=== PATIENT | male | born 1965 | race Two or more races ===

== ENCOUNTER 2017-05-02 11:22 | Inpatient (IN) | payer MEDICARE ==
[~2017-05-02] VITALS: Ht 180.3 cm; Wt 83.9 kg
[2017-05-02] MEDS ORDERED: Morphine Sulfate 4mg/ml Inj IVP ONE (11:30)
[2017-05-02] MEDS ORDERED: Ketorolac 30mg Inj IV ONE (11:30)
[2017-05-02 11:52] LABS: BASOPHILS % (AUTO) 1.6 % (0.0-2.0); EOSINOPHILS % (AUTO) 4.6 % (0.0-3.0); HEMOGLOBIN 15.1 G/DL (14.2-18.0); LYMPHOCYTES % (AUTO) 14.9 % (20.0-45.0); MEAN CORPUSCULAR VOLUME 90 FL (80-99); NEUTROPHILS % (AUTO) 71.9 % (45.0-75.0); PLATELET COUNT 331 K/UL (150-450); RED CELL DISTRIBUTION WIDTH 12.7 % (11.6-14.8); WHITE BLOOD COUNT 7.3 K/UL (4.8-10.8)
[2017-05-02 12:00] VITALS: BP 147/98
[2017-05-02 12:14] LABS: ANION GAP 7 mmol/L (5-15); BLOOD UREA NITROGEN 10 mg/dL (7-18); CALCIUM 9.2 MG/DL (8.5-10.1); CARBON DIOXIDE 31 MMOL/L (21-32); CHLORIDE 102 MMOL/L (98-107); POTASSIUM 3.5 MMOL/L (3.5-5.1); SODIUM 140 MMOL/L (136-145)
[2017-05-02 12:18] LABS: ALANINE AMINOTRANSFERASE 13 U/L (12-78); ALBUMIN 3.7 G/DL (3.4-5.0); ALKALINE PHOSPHATASE 106 U/L (46-116); ASPARTATE AMINO TRANSFERASE 16 U/L (15-37); BILIRUBIN,TOTAL 0.4 MG/DL (0.2-1.0)
[2017-05-02] MEDS ORDERED: HYDROmorphone 1mg/ml Carpuject IVP ONE (13:00)
[2017-05-02 13:11] LABS: APPEARANCE,URINE SLIGHTLY CLOUDY; BILIRUBIN, URINE NEGATIVE (NEGATIVE); COLOR,URINE PALE YELLOW; GLUCOSE, URINE (UA) NEGATIVE (NEGATIVE); KETONES,URINE 2+ (NEGATIVE); LEUKOCYTE ESTERASE ,URINE NEGATIVE (NEGATIVE); NITRITE,URINE NEGATIVE (NEGATIVE); PH,URINE 9 (4.5-8.0); PROTEIN,URINE NEGATIVE (NEGATIVE); UROBILINOGEN,URINE NORMAL MG/DL (0.0-1.0)
[2017-05-02] MEDS ORDERED: QUETIAPINE FUMA25 MG ORAL (13:20)
[2017-05-02] MEDS ORDERED: PRAMIPEXOLE D0.25 MG ORAL (13:20)
[2017-05-02] MEDS ORDERED: MODAFINIL100 MG ORAL (13:20)
[2017-05-02] MEDS ORDERED: LUNESTA3 MG ORAL (13:20)
[2017-05-02] MEDS ORDERED: ATIVAN1 MG ORAL (13:20)
[2017-05-02] MEDS ORDERED: TRILEPTAL600 MG PO (13:20)
[2017-05-02] MEDS ORDERED: RESTORIL15 MG ORAL (13:20)
[2017-05-02] MEDS ORDERED: KLONOPIN0.5 MG ORAL (13:20)
[2017-05-02 13:46] VITALS: BP 126/84
--- NOTE | 2017-05-02 14:06 | Diagnostic Imaging Report ---
Indication: Abdominal pain Technique: Supine view of the abdomen Comparison: none Findings: Bowel gas pattern is unremarkable. No unusual masses or calcifications. Impression: No acute process
--- NOTE | 2017-05-02 14:13 | Diagnostic Imaging Report ---
Indication: Left flank pain Technique: Grayscale and duplex images of the kidneys, retroperitoneum, and bladder were obtained. Comparison: none Findings: Right kidney measures 11.8 cm in length. Left kidney measures 12.5 cm in length. Both kidneys demonstrate normal echogenicity. No hydronephrosis. Right kidney demonstrates a 3 cm diameter hypoechoic area in the interpolar region and there is suggestion of a small cortical scar in the interpolar region. No focal abnormality on the left. Normal inferior vena cava. Prevoid bladder volume 380 mL. Postvoid bladder volume 171 mL. Prostate volume 30 mL. Impression: 3 cm diameter hypoechoic area in the interpolar region of the right kidney. Could represent a solid renal mass. Further evaluation with contrast CT recommended Negative for hydronephrosis Large postvoid residual bladder volume, 171 mL. Findings discussed by phone with Dr. Bateman at the time of interpretation
[2017-05-02] MEDS ORDERED: fentaNYL 100 mcg/2 mL IV ONE (14:30)
--- NOTE | 2017-05-02 14:32 | Emergency Room Report ---
History of Present Illness General Chief Complaint: Abdominal Pain Source: Patient, EMS Present Illness HPI Patient presents with left flank pain. He had a CT done at another hospital they said that he had a renal stone. The pain has persisted. He denies any hematuria or fever. He's had nausea without any vomiting. His moved his bowels without any trouble. Pain is severe, burning L flank radiating anteriorly, constant. States no medicine taken. No fevers, cough, sore throat, headache. + anxiety. On meds for psych. No recent seizures. Allergies: Coded Allergies: No Known Allergies (Unverified , 05/02/17) Patient History Past Medical History: see triage record, HTN, psych hx, other - traumatic brain injury Social History: Denies: smoking Social History Narrative assisted living Reviewed Nursing Documentation: PMH: Agreed, PSxH: Agreed Nursing Documentation-PMH Hx Hypertension: Yes Review of Systems All Other Systems: negative except mentioned in HPI Physical Exam Vital Signs Date Time Temp Pulse Resp B/P (MAP) Pulse Ox O2 Delivery O2 Flow Rate FiO2 05/02/17 11:13 98.2 82 20 112/76 99 Room Air Sp02 EP Interpretation: reviewed, normal General Appearance: well appearing, alert, GCS 15 - though can't say where CT was done, mild distress Head: normocephalic Eyes: bilateral eye normal inspection, bilateral eye PERRL ENT: moist mucus membranes Neck: supple Respiratory: lungs clear, normal breath sounds Cardiovascular #1: regular rate, rhythm Cardiovascular #2: 2+ radial (R) Gastrointestinal: normal inspection, normal bowel sounds, no mass, non- distended, no guarding, no rebound, tenderness Genitourinary: no CVA tenderness Musculoskeletal: back normal, gait/station normal, normal range of motion Neurologic: alert, motor strength/tone normal, DTRs symmetric, sensory intact, oriented - X2 Psychiatric: anxious Skin: normal inspection, warm/dry Medical Decision Making Diagnostic Impression: Primary Impression: Intractable left flank pain ER Course Patient with severe L flank pain with h/o recent CT with renal stone. DDx; stone, pyelonephritis, diverticulitis, uti amongst others. Although he is calm , he complains of severe pain. Evaluation with labs and ultrasound (as h/o recent CT). Will treat with IV hydration and analgesia. Will try to track down CT. Patient still with severe pain. Dilaudid is given.. Labs with normal WBC, H/H, UA , CMP. U/S with minimal hydro, no stone identified. R abnormal process (not where pain is). The patient still has significant pain - fentanyl was given. Some improvement but still with severe pain. Patient is admitted to Dr. Dakotah Lynch. Laboratory Tests Test 05/02/17 11:38 05/02/17 12:51 05/02/17 23:00 White Blood Count 7.3 K/UL (4.8-10.8) Red Blood Count 5.20 M/UL (4.70-6.10) Hemoglobin 15.1 G/DL (14.2-18.0) Hematocrit 47.0 % (42.0-52.0) Mean Corpuscular Volume 90 FL (80-99) Mean Corpuscular Hemoglobin 29.1 PG (27.0-31.0) Mean Corpuscular Hemoglobin Concent 32.2 G/DL (32.0-36.0) Red Cell Distribution Width 12.7 % (11.6-14.8) Platelet Count 331 K/UL (150-450) Mean Platelet Volume 6.5 FL (6.5-10.1) Neutrophils (%) (Auto) 71.9 % (45.0-75.0) Lymphocytes (%) (Auto) 14.9 % (20.0-45.0) L Monocytes (%) (Auto) 7.0 % (1.0-10.0) Eosinophils (%) (Auto) 4.6 % (0.0-3.0) H Basophils (%) (Auto) 1.6 % (0.0-2.0) Prothrombin Time 10.1 SEC (9.30-11.50) Prothrombin Time INR 1.0 (0.9-1.1) PTT 29 SEC (23-33) Sodium Level 140 MMOL/L (136-145) Potassium Level 3.5 MMOL/L (3.5-5.1) Chloride Level 102 MMOL/L (98-107) Carbon Dioxide Level 31 MMOL/L (21-32) Anion Gap 7 mmol/L (5-15) Blood Urea Nitrogen 10 mg/dL (7-18) Creatinine 1.0 MG/DL (0.55-1.30) Estimate Glomerular Filtration Rate > 60 mL/min (>60) Glucose Level 95 MG/DL (74-106) Calcium Level 9.2 MG/DL (8.5-10.1) Total Bilirubin 0.4 MG/DL (0.2-1.0) Aspartate Amino Transferase (AST) 16 U/L (15-37) Alanine Aminotransferase (ALT) 13 U/L (12-78) Alkaline Phosphatase 106 U/L (46-116) Total Protein 7.5 G/DL (6.4-8.2) Albumin 3.7 G/DL (3.4-5.0) Globulin 3.8 g/dL Albumin/Globulin Ratio 1.0 (1.0-2.7) Lipase 149 U/L (73-393) Urine Color Pale yellow Pending Urine Appearance Slightly cloudy Pending Urine pH 9 (4.5-8.0) Pending Urine Specific [place] 1.015 (1.005-1.035) Pending Urine Protein Negative (NEGATIVE) Pending Urine Glucose (UA) Negative (NEGATIVE) Pending Urine Ketones 2+ (NEGATIVE) H Pending Urine Occult Blood Negative (NEGATIVE) Pending Urine Nitrite Negative (NEGATIVE) Pending Urine Bilirubin Negative (NEGATIVE) Pending Urine Urobilinogen Normal MG/DL (0.0-1.0) Pending Urine Leukocyte Esterase Negative (NEGATIVE) Pending Urine RBC Pending Urine WBC Pending Urine Squamous Epithelial Cells Pending Urine Bacteria Pending Urine Opiates Screen Pending Urine Barbiturates Screen Pending Phencyclidine (PCP) Screen Pending Urine Amphetamines Screen Pending Urine Benzodiazepines Screen Pending Urine Cocaine Screen Pending Urine Marijuana (THC) Screen Pending Other X-Ray Diagnostic Results Other X-Ray Diagnostic Results : X-Ray ordered: abd # of Views/Limited Vs Complete: 1 View Indication: Pain EP Interpretation: Yes Interpretation: nonspecific bowel gas, no sbo, other - no calcifications Impression: Other Electronically Signed by: Oswaldo Bateman MD CT/MRI/US Diagnostic Results CT/MRI/US Diagnostic Results : Imaging Test Ordered: renal u/s Impression Findings: Right kidney measures 11.8 cm in length. Left kidney measures 12.5 cm in length. Both kidneys demonstrate normal echogenicity. No hydronephrosis. Right kidney demonstrates a 3 cm diameter hypoechoic area in the interpolar region and there is suggestion of a small cortical scar in the interpolar region. No focal abnormality on the left. Normal inferior vena cava. Prevoid bladder volume 380 mL. Postvoid bladder volume 171 mL. Prostate volume 30 mL. Impression: 3 cm diameter hypoechoic area in the interpolar region of the right kidney. Could represent a solid renal mass. Further evaluation with contrast CT recommended Negative for hydronephrosis Large postvoid residual bladder volume, 171 mL. Last Vital Signs Date Time Temp Pulse Resp B/P (MAP) Pulse Ox O2 Delivery O2 Flow Rate FiO2 05/02/17 20:22 80 139/89 05/02/17 20:00 97.7 22 98 05/02/17 14:30 Room Air Status: improved Disposition: HOME, SELF-CARE Condition: Improved Referrals: DAKOTAH LYNCH (PCP) Oswaldo Bateman M.D. May 02, 2017 14:32
--- NOTE | 2017-05-02 15:42 | Consultation ---
History of Present Illness General Date patient seen: May 02, 2017 Chief Complaint: Abdominal Pain Present Illness HPI 51 yo male with hx of opioid dependence and anxiety d/o. the pt received large amount of pain meds in ER. The pt is still c/o severe abdominal pain and appears agitated. the pt is not remaining in his room and constantly coming out of his room and asking for pain and is disruptive. the pt's abdomen is non- tender. Allergies: Coded Allergies: No Known Allergies (Unverified , 05/02/17) Medication History Scheduled Clonazepam* (Klonopin*), 0.5 MG ORAL Q6H, (Reported) Lorazepam* (Ativan*), 1 MG ORAL Q6HR, (Reported) Modafinil* (Provigil), 200 MG ORAL DAILY, (Reported) Oxcarbazepine* (Trileptal*), 600 MG PO BID, (Reported) Pramipexole* (Mirapex*), 0.125 MG ORAL THREE TIMES A DAY, (Reported) Quetiapine Fumarate* (Seroquel*), 300 MG ORAL DAILY, (Reported) Scheduled PRN Eszopiclone (Lunesta), 3 MG ORAL BEDTIME PRN for Insomnia, (Reported) Temazepam* (Restoril*), 15 MG ORAL BEDTIME PRN for Insomnia, (Reported) Patient History Limited by: medical condition History Provided By: Patient, Medical Record, PMD Healthcare decision maker N Resuscitation status Advanced Directive on File Past Medical/Surgical History Past Medical/Surgical History: (1) Kidney stone Review of Systems Psychiatric: Reports: prior hx, anxiety, depressed feelings Physical Exam General Appearance: no apparent distress, alert, agitated Neurologic: alert, oriented x 3, responsive, depressed affect Last 24 Hour Vital Signs Date Time Temp Pulse Resp B/P (MAP) Pulse Ox O2 Delivery O2 Flow Rate FiO2 05/02/17 13:46 98.0 89 19 126/84 98 Room Air 05/02/17 12:00 98.6 97 20 147/98 99 Room Air 05/02/17 11:13 98.2 82 20 112/76 99 Room Air Laboratory Tests Test 05/02/17 11:38 05/02/17 12:51 White Blood Count 7.3 K/UL (4.8-10.8) Red Blood Count 5.20 M/UL (4.70-6.10) Hemoglobin 15.1 G/DL (14.2-18.0) Hematocrit 47.0 % (42.0-52.0) Mean Corpuscular Volume 90 FL (80-99) Mean Corpuscular Hemoglobin 29.1 PG (27.0-31.0) Mean Corpuscular Hemoglobin Concent 32.2 G/DL (32.0-36.0) Red Cell Distribution Width 12.7 % (11.6-14.8) Platelet Count 331 K/UL (150-450) Mean Platelet Volume 6.5 FL (6.5-10.1) Neutrophils (%) (Auto) 71.9 % (45.0-75.0) Lymphocytes (%) (Auto) 14.9 % (20.0-45.0) L Monocytes (%) (Auto) 7.0 % (1.0-10.0) Eosinophils (%) (Auto) 4.6 % (0.0-3.0) H Basophils (%) (Auto) 1.6 % (0.0-2.0) Prothrombin Time 10.1 SEC (9.30-11.50) Prothromb Time International Ratio 1.0 (0.9-1.1) Activated Partial Thromboplast Time 29 SEC (23-33) Sodium Level 140 MMOL/L (136-145) Potassium Level 3.5 MMOL/L (3.5-5.1) Chloride Level 102 MMOL/L (98-107) Carbon Dioxide Level 31 MMOL/L (21-32) Anion Gap 7 mmol/L (5-15) Blood Urea Nitrogen 10 mg/dL (7-18) Creatinine 1.0 MG/DL (0.55-1.30) Estimat Glomerular Filtration Rate > 60 mL/min (>60) Glucose Level 95 MG/DL (74-106) Calcium Level 9.2 MG/DL (8.5-10.1) Total Bilirubin 0.4 MG/DL (0.2-1.0) Aspartate Amino Transf (AST/SGOT) 16 U/L (15-37) Alanine Aminotransferase (ALT/SGPT) 13 U/L (12-78) Alkaline Phosphatase 106 U/L (46-116) Total Protein 7.5 G/DL (6.4-8.2) Albumin 3.7 G/DL (3.4-5.0) Globulin 3.8 g/dL Albumin/Globulin Ratio 1.0 (1.0-2.7) Lipase 149 U/L (73-393) Urine Color Pale yellow Urine Appearance Slightly cloudy Urine pH 9 (4.5-8.0) Urine Specific [place] 1.015 (1.005-1.035) Urine Protein Negative (NEGATIVE) Urine Glucose (UA) Negative (NEGATIVE) Urine Ketones 2+ (NEGATIVE) H Urine Occult Blood Negative (NEGATIVE) Urine Nitrite Negative (NEGATIVE) Urine Bilirubin Negative (NEGATIVE) Urine Urobilinogen Normal MG/DL (0.0-1.0) Urine Leukocyte Esterase Negative (NEGATIVE) Height (Feet): 5 Height (Inches): 11.00 Weight (Pounds): 185 Medications Current Medications Medications (Trade) Dose Ordered Sig/Qian Route PRN Reason Start Time Stop Time Status Last Admin Dose Admin Lorazepam (Ativan) 1 mg Q6H PRN ORAL For Anxiety 05/02/17 15:15 05/09/17 15:14 Oxcarbazepine (Trileptal) 600 mg EVERY 12 HOURS ORAL 05/02/17 21:00 06/01/17 20:59 Quetiapine Fumarate (SEROquel) 300 mg BEDTIME ORAL 05/02/17 21:00 06/01/17 20:59 Assessment/Plan Status: stable, progressing Assessment/Plan opioid/ pain medication dependence -seroquel 300mg qhs -rec to avoid prescribing pain meds. Lesley Navarro M.D. May 02, 2017 15:42
[2017-05-02] MEDS ORDERED: Morphine Sulfate 2mg/ml Inj IVP PRN (15:45)
[2017-05-02] MEDS ORDERED: Mylanta II UD 30ml ORAL PRN (15:45)
[2017-05-02] MEDS ORDERED: Miralax 17gm pkt ORAL PRN (15:45)
[2017-05-02] MEDS ORDERED: Morphine Sulfate 4mg/ml Inj IV PRN (15:45)
[2017-05-02] MEDS ORDERED: Nitroglycerin Subl 0.4mg tab SL PRN (15:45)
[2017-05-02 15:59] VITALS: BP 142/81
[2017-05-02] MEDS: Morphine Sulfate 4mg/ml Inj IV PRN (16:41)
[2017-05-02] MEDS ORDERED: cefTRIAXone 1 GM in D5W 55 ML IVPB SCH (17:00)
--- NOTE | 2017-05-02 17:24 | Pulmonology Progress Note ---
Assessment/Plan Problems: (1) Kidney stone (2) Abdominal pain (3) HTN (hypertension) (4) Dizziness Assessment/Plan IV fluids check cultures symptomatic treatment dvt prophylaxis f/u GI recommendations. urology evaluation Subjective ROS Limited/Unobtainable: No Interval Events: still c/o pain Allergies: Coded Allergies: No Known Allergies (Unverified , 05/02/17) Objective Last 24 Hour Vital Signs Date Time Temp Pulse Resp B/P (MAP) Pulse Ox O2 Delivery O2 Flow Rate FiO2 05/02/17 15:59 97.0 85 21 142/81 97 05/02/17 14:30 89 17 125/74 99 Room Air 05/02/17 13:46 98.0 89 19 126/84 98 Room Air 05/02/17 12:00 98.6 97 20 147/98 99 Room Air 05/02/17 11:13 98.2 82 20 112/76 99 Room Air HEENT: normocephalic, atraumatic Respiratory/Chest: chest wall non-tender, lungs clear Cardiovascular: normal peripheral pulses, normal rate Abdomen: normal bowel sounds, soft, non tender Extremities: no cyanosis Skin: no rash 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 Laboratory Tests 05/02/17 11:38: White Blood Count 7.3, Red Blood Count 5.20, Hemoglobin 15.1, Hematocrit 47.0, Mean Corpuscular Volume 90, Mean Corpuscular Hemoglobin 29.1, Mean Corpuscular Hemoglobin Concent 32.2, Red Cell Distribution Width 12.7, Platelet Count 331, Mean Platelet Volume 6.5, Neutrophils (%) (Auto) 71.9, Lymphocytes (%) (Auto) 14.9L, Monocytes (%) (Auto) 7.0, Eosinophils (%) (Auto) 4.6H, Basophils (%) ( Auto) 1.6, Prothrombin Time 10.1, Prothromb Time International Ratio 1.0, Activated Partial Thromboplast Time 29, Sodium Level 140, Potassium Level 3.5, Chloride Level 102, Carbon Dioxide Level 31, Anion Gap 7, Blood Urea Nitrogen 10 , Creatinine 1.0, Estimat Glomerular Filtration Rate > 60, Glucose Level 95, Calcium Level 9.2, Total Bilirubin 0.4, Aspartate Amino Transf (AST/SGOT) 16, Alanine Aminotransferase (ALT/SGPT) 13, Alkaline Phosphatase 106, Total Protein 7.5, Albumin 3.7, Globulin 3.8, Albumin/Globulin Ratio 1.0, Lipase 149 05/02/17 12:51: Urine Color Pale yellow, Urine Appearance Slightly cloudy, Urine pH 9, Urine Specific [place] 1.015, Urine Protein Negative, Urine Glucose (UA) Negative, Urine Ketones 2+H, Urine Occult Blood Negative, Urine Nitrite Negative, Urine Bilirubin Negative, Urine Urobilinogen Normal, Urine Leukocyte Esterase Negative Current Medications Medications (Trade) Dose Ordered Sig/Qian Route PRN Reason Start Time Stop Time Status Last Admin Dose Admin Acetaminophen (Tylenol) 650 mg Q4H PRN ORAL fever (temp>100.5F) 05/02/17 15:45 06/01/17 15:44 Al Hydroxide/Mg Hydroxide (Mylanta II) 30 ml Q6H PRN ORAL dyspepsia 05/02/17 15:45 06/01/17 15:44 Ceftriaxone Sodium 1 gm/ Sodium Chloride 55 ml @ 110 mls/hr Q24H IVPB 05/02/17 17:00 05/09/17 16:59 Dextrose (Dextrose 50%) STAT PRN IV Hypoglycemia 05/02/17 15:45 06/01/17 15:44 Dextrose/Sodium Chloride 1,000 ml @ 75 mls/hr [id number] IV 05/02/17 16:30 06/01/17 16:29 Diphenhydramine HCl (Benadryl) 25 mg Q6H PRN ORAL Itching/Pruritis 05/02/17 15:45 06/01/17 15:44 Famotidine (Pepcid I.v.) 20 mg Q12HR IVP 05/02/17 21:00 06/01/17 20:59 Heparin Sodium (Porcine) (Heparin 5000 units/ml) 5,000 units EVERY 12 HOURS SUBQ 05/02/17 21:00 06/01/17 20:59 Lorazepam (Ativan) 1 mg Q6H PRN ORAL For Anxiety 05/02/17 15:15 05/09/17 15:14 Morphine Sulfate (Morphine Sulfate) 2 mg Q4H PRN IVP Moderate Pain (Pain Scale 4-6) 05/02/17 15:45 05/09/17 15:44 Morphine Sulfate (Morphine Sulfate) 4 mg Q4H PRN IV Severe Pain (Pain Scale 7-10) 05/02/17 16:15 05/09/17 16:14 05/02/17 16:41 Nitroglycerin (Ntg) 0.4 mg Q5M X 3 DOSES PRN SL Prn Chest Pain 05/02/17 15:45 06/01/17 15:44 Ondansetron HCl (Zofran) 4 mg Q6H PRN IVP Nausea & Vomiting 05/02/17 15:45 06/01/17 15:44 Oxcarbazepine (Trileptal) 600 mg EVERY 12 HOURS ORAL 05/02/17 21:00 06/01/17 20:59 Polyethylene Glycol (Miralax) 17 gm HSPRN PRN ORAL Constipation 05/02/17 15:45 06/01/17 15:44 Quetiapine Fumarate (SEROquel) 300 mg BEDTIME ORAL 05/02/17 21:00 06/01/17 20:59 Temazepam (Restoril) 15 mg HSPRN PRN ORAL Insomnia 05/02/17 15:45 05/09/17 15:44 KELSIE EGAN May 02, 2017 17:24
--- NOTE | 2017-05-02 17:48 | GI Initial Consult Note ---
History of Present Illness General Date patient seen: May 02, 2017 Time patient seen: 17:47 Reason for Hospitalization: Abdominal Pain Referring physician: KELSIE BULLARD Reason for Consultation: ABDOMINAL PAIN Present Illness HPI Patient presents with left flank pain. He had a CT done at another hospital he said that he had a renal stone. The pain has persisted. He denies any hematuria or fever. He's had nausea without any vomiting. His moved his bowels trouble. GI consulted for abdominal pain. HPI noted above. Pt seen on floor, awake A& Ox4 very anxious ambulating around the unit complaining of lower abdominal pain. Soft, non tender to touch. States he hasn't been able to eat for 3-4 days. C/o of constipation, no passing of flatus. No history of endoscopy/ colonoscopy. Denies any tobacco/alcohol/drug use. Home Meds Reported Medications Temazepam* (RESTORIL*) 15 Mg Capsule, 15 MG ORAL BEDTIME Y for Insomnia, CAP 05/02/17 Lorazepam* (ATIVAN*) 1 Mg Tablet, 1 MG ORAL Q6HR, TAB 05/02/17 Clonazepam* (KLONOPIN*) 0.5 Mg Tablet, 0.5 MG ORAL Q6H, #15 TAB 0 Refills 05/02/17 Eszopiclone (LUNESTA) 3 Mg Tablet, 3 MG ORAL BEDTIME Y for Insomnia, TAB 0 Refills 05/02/17 Quetiapine Fumarate* (SEROQUEL*) 25 Mg Tablet, 300 MG ORAL DAILY, TAB 05/02/17 Modafinil* (PROVIGIL) 100 Mg Tablet, 200 MG ORAL DAILY, TAB 0 Refills 05/02/17 Pramipexole* (MIRAPEX*) 0.25 Mg Tablet, 0.125 MG ORAL THREE TIMES A DAY, TAB 05/02/17 Oxcarbazepine* (TRILEPTAL*) 600 Mg Tablet, 600 MG PO BID, TAB 05/02/17 Med list reviewed/reconciled: Yes Allergies: Coded Allergies: No Known Allergies (Unverified , 05/02/17) Patient History Limited by: medical condition History Provided By: Patient, Medical Record PMH Narrative Hx Hypertension: Yes Review of Systems All Other Systems: negative except mentioned in HPI Physical Exam Vital Signs Date Time Temp Pulse Resp B/P (MAP) Pulse Ox O2 Delivery O2 Flow Rate FiO2 05/02/17 11:13 98.2 82 20 112/76 99 Room Air Sp02 EP Interpretation: reviewed, normal Labs Laboratory Tests Test 05/02/17 11:38 05/02/17 12:51 White Blood Count 7.3 K/UL (4.8-10.8) Red Blood Count 5.20 M/UL (4.70-6.10) Hemoglobin 15.1 G/DL (14.2-18.0) Hematocrit 47.0 % (42.0-52.0) Mean Corpuscular Volume 90 FL (80-99) Mean Corpuscular Hemoglobin 29.1 PG (27.0-31.0) Mean Corpuscular Hemoglobin Concent 32.2 G/DL (32.0-36.0) Red Cell Distribution Width 12.7 % (11.6-14.8) Platelet Count 331 K/UL (150-450) Mean Platelet Volume 6.5 FL (6.5-10.1) Neutrophils (%) (Auto) 71.9 % (45.0-75.0) Lymphocytes (%) (Auto) 14.9 % (20.0-45.0) L Monocytes (%) (Auto) 7.0 % (1.0-10.0) Eosinophils (%) (Auto) 4.6 % (0.0-3.0) H Basophils (%) (Auto) 1.6 % (0.0-2.0) Prothrombin Time 10.1 SEC (9.30-11.50) Prothromb Time International Ratio 1.0 (0.9-1.1) Activated Partial Thromboplast Time 29 SEC (23-33) Sodium Level 140 MMOL/L (136-145) Potassium Level 3.5 MMOL/L (3.5-5.1) Chloride Level 102 MMOL/L (98-107) Carbon Dioxide Level 31 MMOL/L (21-32) Anion Gap 7 mmol/L (5-15) Blood Urea Nitrogen 10 mg/dL (7-18) Creatinine 1.0 MG/DL (0.55-1.30) Estimat Glomerular Filtration Rate > 60 mL/min (>60) Glucose Level 95 MG/DL (74-106) Calcium Level 9.2 MG/DL (8.5-10.1) Total Bilirubin 0.4 MG/DL (0.2-1.0) Aspartate Amino Transf (AST/SGOT) 16 U/L (15-37) Alanine Aminotransferase (ALT/SGPT) 13 U/L (12-78) Alkaline Phosphatase 106 U/L (46-116) Total Protein 7.5 G/DL (6.4-8.2) Albumin 3.7 G/DL (3.4-5.0) Globulin 3.8 g/dL Albumin/Globulin Ratio 1.0 (1.0-2.7) Lipase 149 U/L (73-393) Urine Color Pale yellow Urine Appearance Slightly cloudy Urine pH 9 (4.5-8.0) Urine Specific [place] 1.015 (1.005-1.035) Urine Protein Negative (NEGATIVE) Urine Glucose (UA) Negative (NEGATIVE) Urine Ketones 2+ (NEGATIVE) H Urine Occult Blood Negative (NEGATIVE) Urine Nitrite Negative (NEGATIVE) Urine Bilirubin Negative (NEGATIVE) Urine Urobilinogen Normal MG/DL (0.0-1.0) Urine Leukocyte Esterase Negative (NEGATIVE) General Appearance: well appearing, no apparent distress, alert Head: normocephalic EENT: PERRL/EOMI, normal ENT inspection Neck: supple Respiratory: normal breath sounds, no respiratory distress Cardiovascular: normal rate Gastrointestinal: normal inspection, non tender, soft, normal bowel sounds, non -distended Rectal: deferred Genitourinary: deferred Musculoskeletal: normal inspection, back normal Neurologic: normal inspection, alert, oriented x3, responsive Psychiatric: normal inspection, judgement/insight normal, memory normal Skin: normal inspection, normal color, no rash, warm/dry, palpation normal, well hydrated Lymphatic: normal inspection, no adenopathy Current Medications Current Medications Medications (Trade) Dose Ordered Sig/Qian Route PRN Reason Start Time Stop Time Status Last Admin Dose Admin Acetaminophen (Tylenol) 650 mg Q4H PRN ORAL fever (temp>100.5F) 05/02/17 15:45 06/01/17 15:44 Al Hydroxide/Mg Hydroxide (Mylanta II) 30 ml Q6H PRN ORAL dyspepsia 05/02/17 15:45 06/01/17 15:44 Ceftriaxone Sodium 1 gm/ Sodium Chloride 55 ml @ 110 mls/hr Q24H IVPB 05/02/17 17:00 05/09/17 16:59 Dextrose (Dextrose 50%) STAT PRN IV Hypoglycemia 05/02/17 15:45 06/01/17 15:44 Dextrose/Sodium Chloride 1,000 ml @ 75 mls/hr [id number] IV 05/02/17 16:30 06/01/17 16:29 Diphenhydramine HCl (Benadryl) 25 mg Q6H PRN ORAL Itching/Pruritis 05/02/17 15:45 06/01/17 15:44 Famotidine (Pepcid I.v.) 20 mg Q12HR IVP 05/02/17 21:00 06/01/17 20:59 Heparin Sodium (Porcine) (Heparin 5000 units/ml) 5,000 units EVERY 12 HOURS SUBQ 05/02/17 21:00 06/01/17 20:59 Lorazepam (Ativan) 1 mg Q6H PRN ORAL For Anxiety 05/02/17 15:15 05/09/17 15:14 Morphine Sulfate (Morphine Sulfate) 2 mg Q4H PRN IVP Moderate Pain (Pain Scale 4-6) 05/02/17 15:45 05/09/17 15:44 Morphine Sulfate (Morphine Sulfate) 4 mg Q4H PRN IV Severe Pain (Pain Scale 7-10) 05/02/17 16:15 05/09/17 16:14 05/02/17 16:41 Nitroglycerin (Ntg) 0.4 mg Q5M X 3 DOSES PRN SL Prn Chest Pain 05/02/17 15:45 06/01/17 15:44 Ondansetron HCl (Zofran) 4 mg Q6H PRN IVP Nausea & Vomiting 05/02/17 15:45 06/01/17 15:44 05/02/17 17:34 Oxcarbazepine (Trileptal) 600 mg EVERY 12 HOURS ORAL 05/02/17 21:00 06/01/17 20:59 Polyethylene Glycol (Miralax) 17 gm HSPRN PRN ORAL Constipation 05/02/17 15:45 06/01/17 15:44 Quetiapine Fumarate (SEROquel) 300 mg BEDTIME ORAL 05/02/17 21:00 06/01/17 20:59 Temazepam (Restoril) 15 mg HSPRN PRN ORAL Insomnia 05/02/17 15:45 05/09/17 15:44 GI: Plan Problems: (1) Abdominal pain (2) Anxiety (3) Nausea (4) Kidney stone Plan KUB reviewed >> negative symptomatic treatment pain mgmt zofran prn ativan prn will advance diet bowel regime >> colace fu labs, utox suggest psych / pain consult Discussed with Dr. Skinner. Thank you for this patient referral, we will follow. Hannah Perales N.P. May 02, 2017 17:48
[2017-05-02] MEDS: LORazepam 1mg tab ORAL PRN (18:26)
--- NOTE | 2017-05-02 18:28 | Cardiology Progress Note ---
Assessment/Plan Assessment/Plan The patient is seen and examined, full consult mote is dictated. Objective Last 24 Hour Vital Signs Date Time Temp Pulse Resp B/P (MAP) Pulse Ox O2 Delivery O2 Flow Rate FiO2 05/02/17 17:11 97.0 05/02/17 15:59 97.0 85 21 142/81 97 05/02/17 14:30 89 17 125/74 99 Room Air 05/02/17 13:46 98.0 89 19 126/84 98 Room Air 05/02/17 12:00 98.6 97 20 147/98 99 Room Air 05/02/17 11:13 98.2 82 20 112/76 99 Room Air Laboratory Tests Test 05/02/17 11:38 05/02/17 12:51 White Blood Count 7.3 K/UL (4.8-10.8) Red Blood Count 5.20 M/UL (4.70-6.10) Hemoglobin 15.1 G/DL (14.2-18.0) Hematocrit 47.0 % (42.0-52.0) Mean Corpuscular Volume 90 FL (80-99) Mean Corpuscular Hemoglobin 29.1 PG (27.0-31.0) Mean Corpuscular Hemoglobin Concent 32.2 G/DL (32.0-36.0) Red Cell Distribution Width 12.7 % (11.6-14.8) Platelet Count 331 K/UL (150-450) Mean Platelet Volume 6.5 FL (6.5-10.1) Neutrophils (%) (Auto) 71.9 % (45.0-75.0) Lymphocytes (%) (Auto) 14.9 % (20.0-45.0) L Monocytes (%) (Auto) 7.0 % (1.0-10.0) Eosinophils (%) (Auto) 4.6 % (0.0-3.0) H Basophils (%) (Auto) 1.6 % (0.0-2.0) Prothrombin Time 10.1 SEC (9.30-11.50) Prothromb Time International Ratio 1.0 (0.9-1.1) Activated Partial Thromboplast Time 29 SEC (23-33) Sodium Level 140 MMOL/L (136-145) Potassium Level 3.5 MMOL/L (3.5-5.1) Chloride Level 102 MMOL/L (98-107) Carbon Dioxide Level 31 MMOL/L (21-32) Anion Gap 7 mmol/L (5-15) Blood Urea Nitrogen 10 mg/dL (7-18) Creatinine 1.0 MG/DL (0.55-1.30) Estimat Glomerular Filtration Rate > 60 mL/min (>60) Glucose Level 95 MG/DL (74-106) Calcium Level 9.2 MG/DL (8.5-10.1) Total Bilirubin 0.4 MG/DL (0.2-1.0) Aspartate Amino Transf (AST/SGOT) 16 U/L (15-37) Alanine Aminotransferase (ALT/SGPT) 13 U/L (12-78) Alkaline Phosphatase 106 U/L (46-116) Total Protein 7.5 G/DL (6.4-8.2) Albumin 3.7 G/DL (3.4-5.0) Globulin 3.8 g/dL Albumin/Globulin Ratio 1.0 (1.0-2.7) Lipase 149 U/L (73-393) Urine Color Pale yellow Urine Appearance Slightly cloudy Urine pH 9 (4.5-8.0) Urine Specific [place] 1.015 (1.005-1.035) Urine Protein Negative (NEGATIVE) Urine Glucose (UA) Negative (NEGATIVE) Urine Ketones 2+ (NEGATIVE) H Urine Occult Blood Negative (NEGATIVE) Urine Nitrite Negative (NEGATIVE) Urine Bilirubin Negative (NEGATIVE) Urine Urobilinogen Normal MG/DL (0.0-1.0) Urine Leukocyte Esterase Negative (NEGATIVE) ALTON CONNOLLY May 02, 2017 18:28
[2017-05-02 20:00] VITALS: BP 144/48
[2017-05-02] MEDS: D5 1/2NS 1,000 ML IV SCH (20:13)
[2017-05-02] MEDS: cefTRIAXone 1 GM in NS 55 ML IVPB SCH (20:13)
[2017-05-02] MEDS: Metoprolol Succinate XL 25mg tab ORAL SCH (20:22)
[2017-05-02] MEDS: OXcarbazepine 150mg tab ORAL SCH (20:58)
[2017-05-02] MEDS: Heparin 5000 units/ml inj SUBQ SCH (21:15)
[2017-05-03] VITALS (7 sets, daily range): BP systolic 110–140; BP diastolic 70–94
[2017-05-03 00:08] LABS: APPEARANCE,URINE CLEAR; BILIRUBIN, URINE NEGATIVE (NEGATIVE); GLUCOSE, URINE (UA) NEGATIVE (NEGATIVE); KETONES,URINE 3+ (NEGATIVE); LEUKOCYTE ESTERASE ,URINE 1+ (NEGATIVE); NITRITE,URINE NEGATIVE (NEGATIVE); PH,URINE 7 (4.5-8.0); PROTEIN,URINE 1+ (NEGATIVE); UROBILINOGEN,URINE NORMAL MG/DL (0.0-1.0)
[2017-05-03 00:22] LABS: COLOR,URINE YELLOW
[2017-05-03] MEDS: D5 1/2NS 1,000 ML IV SCH ×2 (05:50→20:44)
[2017-05-03] MEDS: LORazepam 1mg tab ORAL PRN ×3 (07:09→20:44)
[2017-05-03 07:20] LABS: BASOPHILS % (AUTO) 1.8 % (0.0-2.0); HEMOGLOBIN 14.2 G/DL (14.2-18.0); LYMPHOCYTES % (AUTO) 22.3 % (20.0-45.0); MEAN CORPUSCULAR VOLUME 92 FL (80-99); MONOCYTES % (AUTO) 7.7 % (1.0-10.0); NEUTROPHILS % (AUTO) 53.3 % (45.0-75.0); PLATELET COUNT 273 K/UL (150-450); RED BLOOD COUNT 4.68 M/UL (4.70-6.10); RED CELL DISTRIBUTION WIDTH 12.7 % (11.6-14.8)
[2017-05-03 07:34] LABS: ALANINE AMINOTRANSFERASE 13 U/L (12-78); ALBUMIN 3.2 G/DL (3.4-5.0); ALBUMIN/GLOBULIN RATIO 1.1 (1.0-2.7); ALKALINE PHOSPHATASE 83 U/L (46-116); ANION GAP 8 mmol/L (5-15); ASPARTATE AMINO TRANSFERASE 16 U/L (15-37); BILIRUBIN,TOTAL 0.3 MG/DL (0.2-1.0); BLOOD UREA NITROGEN 13 mg/dL (7-18); CALCIUM 8.5 MG/DL (8.5-10.1); CARBON DIOXIDE 27 MMOL/L (21-32); CHLORIDE 105 MMOL/L (98-107); POTASSIUM 3.8 MMOL/L (3.5-5.1); SODIUM 140 MMOL/L (136-145)
[2017-05-03 08:01] LABS: AMYLASE 50 U/L (25-115)
[2017-05-03] MEDS: Metoprolol Succinate XL 25mg tab ORAL SCH (08:40)
[2017-05-03] MEDS: OXcarbazepine 150mg tab ORAL SCH ×2 (08:41→20:27)
[2017-05-03] MEDS: Heparin 5000 units/ml inj SUBQ SCH ×2 (08:41→20:28)
--- NOTE | 2017-05-03 10:59 | GI Progress Note ---
Assessment/Plan Problems: (1) Nausea ICD Codes: R11.0 - Nausea SNOMED: 430991195 (2) Abdominal pain ICD Codes: R10.9 - Unspecified abdominal pain SNOMED: 75832143 (3) Anxiety ICD Codes: F41.9 - Anxiety disorder, unspecified SNOMED: 38395741 Status: stable Status Narrative Discussed with Dr. Skinner. Assessment/Plan KUB reviewed >> negative symptomatic treatment pain mgmt zofran prn ativan prn will advance diet bowel regime >> colace fu labs, utox suggest psych / pain consult Subjective Subjective generalized pain Objective Last 24 Hour Vital Signs Date Time Temp Pulse Resp B/P (MAP) Pulse Ox O2 Delivery O2 Flow Rate FiO2 05/03/17 08:40 74 110/70 05/03/17 08:00 97.0 74 20 110/70 92 05/03/17 04:00 97.5 70 20 116/74 96 05/03/17 00:14 97.3 70 20 115/75 97 05/03/17 00:00 97.3 70 20 115/75 97 05/02/17 20:22 80 139/89 05/02/17 20:00 97.7 81 22 144/48 98 05/02/17 20:00 97.7 81 20 144/48 22 05/02/17 17:11 97.0 05/02/17 15:59 97.0 85 21 142/81 97 05/02/17 14:30 89 17 125/74 99 Room Air 05/02/17 13:46 98.0 89 19 126/84 98 Room Air 05/02/17 12:00 98.6 97 20 147/98 99 Room Air 05/02/17 11:13 98.2 82 20 112/76 99 Room Air Intake and Output 05/02/17 05/03/17 19:00 07:00 Intake Total 1000 ml 655 ml Balance 1000 ml 655 ml Intake Oral 0 ml 0 ml IV Total 1000 ml 655 ml # Voids 2 Laboratory Tests Test 05/02/17 11:38 05/02/17 12:51 05/02/17 23:00 05/03/17 05:10 White Blood Count 7.3 K/UL (4.8-10.8) 7.0 K/UL (4.8-10.8) Red Blood Count 5.20 M/UL (4.70-6.10) 4.68 M/UL (4.70-6.10) L Hemoglobin 15.1 G/DL (14.2-18.0) 14.2 G/DL (14.2-18.0) Hematocrit 47.0 % (42.0-52.0) 43.0 % (42.0-52.0) Mean Corpuscular Volume 90 FL (80-99) 92 FL (80-99) Mean Corpuscular Hemoglobin 29.1 PG (27.0-31.0) 30.3 PG (27.0-31.0) Mean Corpuscular Hemoglobin Concent 32.2 G/DL (32.0-36.0) 33.0 G/DL (32.0-36.0) Red Cell Distribution Width 12.7 % (11.6-14.8) 12.7 % (11.6-14.8) Platelet Count 331 K/UL (150-450) 273 K/UL (150-450) Mean Platelet Volume 6.5 FL (6.5-10.1) 6.3 FL (6.5-10.1) L Neutrophils (%) (Auto) 71.9 % (45.0-75.0) 53.3 % (45.0-75.0) Lymphocytes (%) (Auto) 14.9 % (20.0-45.0) L 22.3 % (20.0-45.0) Monocytes (%) (Auto) 7.0 % (1.0-10.0) 7.7 % (1.0-10.0) Eosinophils (%) (Auto) 4.6 % (0.0-3.0) H 15.0 % (0.0-3.0) H Basophils (%) (Auto) 1.6 % (0.0-2.0) 1.8 % (0.0-2.0) Prothrombin Time 10.1 SEC (9.30-11.50) Prothromb Time International Ratio 1.0 (0.9-1.1) Activated Partial Thromboplast Time 29 SEC (23-33) 29 SEC (23-33) Sodium Level 140 MMOL/L (136-145) 140 MMOL/L (136-145) Potassium Level 3.5 MMOL/L (3.5-5.1) 3.8 MMOL/L (3.5-5.1) Chloride Level 102 MMOL/L (98-107) 105 MMOL/L (98-107) Carbon Dioxide Level 31 MMOL/L (21-32) 27 MMOL/L (21-32) Anion Gap 7 mmol/L (5-15) 8 mmol/L (5-15) Blood Urea Nitrogen 10 mg/dL (7-18) 13 mg/dL (7-18) Creatinine 1.0 MG/DL (0.55-1.30) 1.0 MG/DL (0.55-1.30) Estimat Glomerular Filtration Rate > 60 mL/min (>60) > 60 mL/min (>60) Glucose Level 95 MG/DL (74-106) 82 MG/DL (74-106) Calcium Level 9.2 MG/DL (8.5-10.1) 8.5 MG/DL (8.5-10.1) Total Bilirubin 0.4 MG/DL (0.2-1.0) 0.3 MG/DL (0.2-1.0) Aspartate Amino Transf (AST/SGOT) 16 U/L (15-37) 16 U/L (15-37) Alanine Aminotransferase (ALT/SGPT) 13 U/L (12-78) 13 U/L (12-78) Alkaline Phosphatase 106 U/L (46-116) 83 U/L (46-116) Total Protein 7.5 G/DL (6.4-8.2) 6.1 G/DL (6.4-8.2) L Albumin 3.7 G/DL (3.4-5.0) 3.2 G/DL (3.4-5.0) L Globulin 3.8 g/dL 2.9 g/dL Albumin/Globulin Ratio 1.0 (1.0-2.7) 1.1 (1.0-2.7) Lipase 149 U/L (73-393) 115 U/L (73-393) Urine Color Pale yellow Yellow Urine Appearance Slightly cloudy Clear Urine pH 9 (4.5-8.0) 7 (4.5-8.0) Urine Specific [place] 1.015 (1.005-1.035) 1.005 (1.005-1.035) Urine Protein Negative (NEGATIVE) 1+ (NEGATIVE) H Urine Glucose (UA) Negative (NEGATIVE) Negative (NEGATIVE) Urine Ketones 2+ (NEGATIVE) H 3+ (NEGATIVE) H Urine Occult Blood Negative (NEGATIVE) Negative (NEGATIVE) Urine Nitrite Negative (NEGATIVE) Negative (NEGATIVE) Urine Bilirubin Negative (NEGATIVE) Negative (NEGATIVE) Urine Urobilinogen Normal MG/DL (0.0-1.0) Normal MG/DL (0.0-1.0) Urine Leukocyte Esterase Negative (NEGATIVE) 1+ (NEGATIVE) H Urine RBC 0-2 /HPF (0 - 0) H Urine WBC 0-2 /HPF (0 - 0) Urine Squamous Epithelial Cells Few /LPF (NONE/OCC) Urine Bacteria None /HPF (NONE) Urine Mucus Moderate /LPF (NONE/OCC) H Urine Opiates Screen Positive (NEGATIVE) H Urine Barbiturates Screen Positive (NEGATIVE) H Phencyclidine (PCP) Screen Negative (NEGATIVE) Urine Amphetamines Screen Negative (NEGATIVE) Urine Benzodiazepines Screen Negative (NEGATIVE) Urine Cocaine Screen Negative (NEGATIVE) Urine Marijuana (THC) Screen Negative (NEGATIVE) Amylase Level 50 U/L (25-115) Height (Feet): 5 Height (Inches): 11.00 Weight (Pounds): 185 General Appearance: WD/WN, no apparent distress, alert Cardiovascular: normal rate Respiratory/Chest: normal breath sounds, no respiratory distress Abdominal Exam: normal bowel sounds, non tender, soft Extremities: normal range of motion, non-tender Hannah Perales N.P. May 03, 2017 10:59
--- NOTE | 2017-05-03 13:37 | General Progress Note ---
Assessment/Plan Problem List: (1) UTI (urinary tract infection) ICD Codes: N39.0 - Urinary tract infection, site not specified SNOMED: 00603676 (2) HTN (hypertension) ICD Codes: I10 - Essential (primary) hypertension SNOMED: 90731939 (3) Dizziness ICD Codes: R42 - Dizziness and giddiness SNOMED: 112023555, 938397844 (4) Kidney stone ICD Codes: N20.0 - Calculus of kidney SNOMED: 82338688 (5) Anxiety ICD Codes: F41.9 - Anxiety disorder, unspecified SNOMED: 00508872 (6) Abdominal pain ICD Codes: R10.9 - Unspecified abdominal pain SNOMED: 58822397 (7) Nausea ICD Codes: R11.0 - Nausea SNOMED: 237810816 Status: unchanged Assessment/Plan ot pt diet abx cbc bmp am Subjective Constitutional: Reports: weakness Allergies: Coded Allergies: No Known Allergies (Unverified , 05/02/17) All Systems: reviewed and negative except above Subjective sleepy calm in bed Objective Last 24 Hour Vital Signs Date Time Temp Pulse Resp B/P (MAP) Pulse Ox O2 Delivery O2 Flow Rate FiO2 05/03/17 12:00 97.3 90 20 140/94 98 05/03/17 08:40 74 110/70 05/03/17 08:00 97.0 74 20 110/70 92 05/03/17 04:00 97.5 70 20 116/74 96 05/03/17 00:14 97.3 70 20 115/75 97 05/03/17 00:00 97.3 70 20 115/75 97 05/02/17 20:22 80 139/89 05/02/17 20:00 97.7 81 22 144/48 98 05/02/17 20:00 97.7 81 20 144/48 22 05/02/17 17:11 97.0 05/02/17 15:59 97.0 85 21 142/81 97 05/02/17 14:30 89 17 125/74 99 Room Air 05/02/17 13:46 98.0 89 19 126/84 98 Room Air Intake and Output 05/02/17 05/03/17 19:00 07:00 Intake Total 1000 ml 655 ml Balance 1000 ml 655 ml Intake Oral 0 ml 0 ml IV Total 1000 ml 655 ml # Voids 2 Laboratory Tests 05/02/17 23:00: Urine Color Yellow, Urine Appearance Clear, Urine pH 7, Urine Specific [place] 1.005, Urine Protein 1+H, Urine Glucose (UA) Negative, Urine Ketones 3+H, Urine Occult Blood Negative, Urine Nitrite Negative, Urine Bilirubin Negative, Urine Urobilinogen Normal, Urine Leukocyte Esterase 1+H, Urine RBC 0-2H, Urine WBC 0-2 , Urine Squamous Epithelial Cells Few, Urine Bacteria None, Urine Mucus ModerateH, Urine Opiates Screen PositiveH, Urine Barbiturates Screen PositiveH, Phencyclidine (PCP) Screen Negative, Urine Amphetamines Screen Negative, Urine Benzodiazepines Screen Negative, Urine Cocaine Screen Negative, Urine Marijuana (THC) Screen Negative 05/03/17 05:10: White Blood Count 7.0, Red Blood Count 4.68L, Hemoglobin 14.2, Hematocrit 43.0, Mean Corpuscular Volume 92, Mean Corpuscular Hemoglobin 30.3, Mean Corpuscular Hemoglobin Concent 33.0, Red Cell Distribution Width 12.7, Platelet Count 273, Mean Platelet Volume 6.3L, Neutrophils (%) (Auto) 53.3, Lymphocytes (%) (Auto) 22.3, Monocytes (%) (Auto) 7.7, Eosinophils (%) (Auto) 15.0H, Basophils (%) ( Auto) 1.8, Activated Partial Thromboplast Time 29, Sodium Level 140, Potassium Level 3.8, Chloride Level 105, Carbon Dioxide Level 27, Anion Gap 8, Blood Urea Nitrogen 13, Creatinine 1.0, Estimat Glomerular Filtration Rate > 60, Glucose Level 82, Calcium Level 8.5, Total Bilirubin 0.3, Aspartate Amino Transf (AST/ SGOT) 16, Alanine Aminotransferase (ALT/SGPT) 13, Alkaline Phosphatase 83, Total Protein 6.1L, Albumin 3.2L, Globulin 2.9, Albumin/Globulin Ratio 1.1, Amylase Level 50, Lipase 115 Height (Feet): 5 Height (Inches): 11.00 Weight (Pounds): 185 General Appearance: lethargic EENT: normal ENT inspection Neck: normal alignment Cardiovascular: normal peripheral pulses, normal rate, regular rhythm Respiratory/Chest: chest wall non-tender, lungs clear, normal breath sounds Abdomen: normal bowel sounds, non tender, soft Extremities: normal inspection Edema: no edema noted Arm (L), no edema noted Arm (R), no edema noted Leg (L), no edema noted Leg (R), no edema noted Pedal (L), no edema noted Pedal (R), no edema noted Generalized Neurologic: motor weakness Skin: normal pigmentation, warm/dry DAKOTAH LYNCH May 03, 2017 13:37
[2017-05-03] MEDS: cefTRIAXone 1 GM in NS 55 ML IVPB SCH (17:14)
--- NOTE | 2017-05-03 18:26 | Pulmonology Progress Note ---
Assessment/Plan Problems: (1) Kidney stone (2) Abdominal pain (3) HTN (hypertension) (4) Dizziness Assessment/Plan IV fluids check cultures symptomatic treatment dvt prophylaxis f/u GI recommendations. urology evaluation Subjective ROS Limited/Unobtainable: No Constitutional: Reports: no symptoms HEENT: Repors: no symptoms Respiratory: Reports: no symptoms Allergies: Coded Allergies: No Known Allergies (Unverified , 05/02/17) Objective Last 24 Hour Vital Signs Date Time Temp Pulse Resp B/P (MAP) Pulse Ox O2 Delivery O2 Flow Rate FiO2 05/03/17 16:00 97.5 82 20 133/90 96 05/03/17 12:00 97.3 90 20 140/94 98 05/03/17 08:40 74 110/70 05/03/17 08:00 97.0 74 20 110/70 92 05/03/17 04:00 97.5 70 20 116/74 96 05/03/17 00:14 97.3 70 20 115/75 97 05/03/17 00:00 97.3 70 20 115/75 97 05/02/17 20:22 80 139/89 05/02/17 20:00 97.7 81 22 144/48 98 05/02/17 20:00 97.7 81 20 144/48 22 Intake and Output 05/02/17 05/03/17 19:00 07:00 Intake Total 1000 ml 655 ml Balance 1000 ml 655 ml Intake Oral 0 ml 0 ml IV Total 1000 ml 655 ml # Voids 2 General Appearance: WD/WN HEENT: normocephalic, anicteric Respiratory/Chest: lungs clear, normal breath sounds Cardiovascular: normal peripheral pulses, normal rate Abdomen: normal bowel sounds, soft, non tender Genitourinary: normal external genitalia Extremities: no cyanosis Neurologic/Psychiatric: feed research aide II-XII grossly normal Laboratory Tests 05/02/17 23:00: Urine Color Yellow, Urine Appearance Clear, Urine pH 7, Urine Specific [place] 1.005, Urine Protein 1+H, Urine Glucose (UA) Negative, Urine Ketones 3+H, Urine Occult Blood Negative, Urine Nitrite Negative, Urine Bilirubin Negative, Urine Urobilinogen Normal, Urine Leukocyte Esterase 1+H, Urine RBC 0-2H, Urine WBC 0-2 , Urine Squamous Epithelial Cells Few, Urine Bacteria None, Urine Mucus ModerateH, Urine Opiates Screen PositiveH, Urine Barbiturates Screen PositiveH, Phencyclidine (PCP) Screen Negative, Urine Amphetamines Screen Negative, Urine Benzodiazepines Screen Negative, Urine Cocaine Screen Negative, Urine Marijuana (THC) Screen Negative 05/03/17 05:10: White Blood Count 7.0, Red Blood Count 4.68L, Hemoglobin 14.2, Hematocrit 43.0, Mean Corpuscular Volume 92, Mean Corpuscular Hemoglobin 30.3, Mean Corpuscular Hemoglobin Concent 33.0, Red Cell Distribution Width 12.7, Platelet Count 273, Mean Platelet Volume 6.3L, Neutrophils (%) (Auto) 53.3, Lymphocytes (%) (Auto) 22.3, Monocytes (%) (Auto) 7.7, Eosinophils (%) (Auto) 15.0H, Basophils (%) ( Auto) 1.8, Activated Partial Thromboplast Time 29, Sodium Level 140, Potassium Level 3.8, Chloride Level 105, Carbon Dioxide Level 27, Anion Gap 8, Blood Urea Nitrogen 13, Creatinine 1.0, Estimat Glomerular Filtration Rate > 60, Glucose Level 82, Calcium Level 8.5, Total Bilirubin 0.3, Aspartate Amino Transf (AST/ SGOT) 16, Alanine Aminotransferase (ALT/SGPT) 13, Alkaline Phosphatase 83, Total Protein 6.1L, Albumin 3.2L, Globulin 2.9, Albumin/Globulin Ratio 1.1, Amylase Level 50, Lipase 115 Current Medications Medications (Trade) Dose Ordered Sig/Qian Route PRN Reason Start Time Stop Time Status Last Admin Dose Admin Acetaminophen (Tylenol) 650 mg Q4H PRN ORAL fever (temp>100.5F) 05/02/17 15:45 06/01/17 15:44 Al Hydroxide/Mg Hydroxide (Mylanta II) 30 ml Q6H PRN ORAL dyspepsia 05/02/17 15:45 06/01/17 15:44 Ceftriaxone Sodium 1 gm/ Sodium Chloride 55 ml @ 110 mls/hr Q24H IVPB 05/02/17 17:00 05/09/17 16:59 05/03/17 17:14 Dextrose (Dextrose 50%) STAT PRN IV Hypoglycemia 05/02/17 15:45 06/01/17 15:44 Dextrose/Sodium Chloride 1,000 ml @ 75 mls/hr [id number] IV 05/02/17 16:30 06/01/17 16:29 05/02/17 20:13 Diphenhydramine HCl (Benadryl) 25 mg Q6H PRN ORAL Itching/Pruritis 05/02/17 15:45 06/01/17 15:44 Docusate Sodium (Colace) 100 mg THREE TIMES A DAY ORAL 05/03/17 21:00 06/02/17 20:59 Famotidine (Pepcid I.v.) 20 mg Q12HR IVP 05/02/17 21:00 06/01/17 20:59 05/03/17 08:40 Heparin Sodium (Porcine) (Heparin 5000 units/ml) 5,000 units EVERY 12 HOURS SUBQ 05/02/17 21:00 06/01/17 20:59 05/03/17 08:41 Lorazepam (Ativan) 1 mg Q6H PRN ORAL For Anxiety 05/02/17 15:15 05/09/17 15:14 05/03/17 13:43 Metoprolol Succinate (Toprol XL) 25 mg DAILY ORAL 05/02/17 19:00 06/01/17 18:59 05/03/17 08:40 Morphine Sulfate (Morphine Sulfate) 2 mg Q4H PRN IVP Moderate Pain (Pain Scale 4-6) 05/02/17 15:45 05/09/17 15:44 05/02/17 20:59 Morphine Sulfate (Morphine Sulfate) 4 mg Q4H PRN IV Severe Pain (Pain Scale 7-10) 05/02/17 16:15 05/09/17 16:14 05/02/17 16:41 Nitroglycerin (Ntg) 0.4 mg Q5M X 3 DOSES PRN SL Prn Chest Pain 05/02/17 15:45 06/01/17 15:44 Ondansetron HCl (Zofran) 4 mg Q6H PRN IVP Nausea & Vomiting 05/02/17 15:45 06/01/17 15:44 05/02/17 17:34 Oxcarbazepine (Trileptal) 600 mg EVERY 12 HOURS ORAL 05/02/17 21:00 06/01/17 20:59 05/03/17 08:41 Polyethylene Glycol (Miralax) 17 gm HSPRN PRN ORAL Constipation 05/02/17 15:45 06/01/17 15:44 05/02/17 18:39 Quetiapine Fumarate (SEROquel) 300 mg BEDTIME ORAL 05/02/17 21:00 06/01/17 20:59 05/02/17 20:59 Temazepam (Restoril) 15 mg HSPRN PRN ORAL Insomnia 05/02/17 15:45 05/09/17 15:44 KELSIE EGAN May 03, 2017 18:26
[2017-05-03] MEDS: Docusate 100mg cap ORAL SCH (21:00)
--- NOTE | 2017-05-03 23:30 | History and Physical Report ---
DATE OF ADMISSION: 05/02/2017 TIME: 1 p.m. ATTENDING PHYSICIAN: Kvng Shaver M.D. CONSULTANTS: 1. Surinder Han M.D. 2. Erick Stone M.D. 3. Sidney Haque M.D. 4. Urology. CHIEF COMPLAINT: Abdominal pain, nausea, and kidney stone. BRIEF HISTORY: The patient is a 51-year-old male from [facility], presented with above-mentioned diagnosis, being in the ER, currently slightly dizzy, awaiting admission to the medical floor. Currently, calm in bed, oriented x2, in no acute distress. PAST MEDICAL HISTORY: Include history of nothing. PAST SURGICAL HISTORY: None. MEDICATIONS: Dilaudid, Zofran, Toradol, morphine, and IV fluids. ALLERGIES: Denies. SOCIAL HISTORY: No smoking. No alcohol. No intravenous drug abuse. FAMILY HISTORY: Noncontributory. PHYSICAL EXAMINATION: GENERAL: Slightly anxious in bed, oriented x2, in no acute distress. VITAL SIGNS: Temperature is 98 degrees, pulse 97, respirations 20, and blood pressure 147/98. CARDIOVASCULAR: No murmur. LUNGS: Distant, clear. ABDOMEN: Bowel sounds positive. Slightly tender. No guarding. No rigidity. No rebound. EXTREMITIES: No cyanosis or edema. NEUROLOGIC: The patient moves all extremities, slightly weak. LABORATORY DATA: Labs at this time show CBC is normal. BMP is normal. INR is 1.0. ASSESSMENT: 1. Abdominal pain. 2. Nausea. 3. Possible kidney stone. 4. Hypertension. 5. Dizziness. PLAN: Continue premedications. OT/PT. Dietary evaluation. Blood pressure control. Zofran p.r.n. Resume home medications. Dr. Skinner, Urology, Dr. Han, Dr. Stone, and Dr. Rosales to consult. We will continue to follow this patient. Kvng Shaver D.O. DR: JAKE JOB#: [id number] CC:
[2017-05-04] VITALS: BP 127/84
[2017-05-04 04:41] VITALS: BP 105/70
[2017-05-04 08:00] VITALS: BP 126/97
--- NOTE | 2017-05-04 08:15 | Consultation ---
DATE OF CONSULTATION: 05/02/2017 CONSULTING PHYSICIAN: Erick Stone M.D. HISTORY OF PRESENT ILLNESS: The patient is a 51-year-old male patient. This patient was admitted to [facility] secondary to flank and abdominal pain, but he has been asking for pain medications around the clock, seems to have a high level of anxiety and agitation as well and that is why there was a psychiatric consultation requested for this patient. The patient does have some confusion and disorganized thought process at the time of the interview. He has overlying diagnosis of schizoaffective bipolar type. The patient is normally taking a psychotropic medication regimen consisting of Seroquel mg at bedtime and Trileptal 600 mg twice a day, which he has not had yet. The patient does have a psychiatric history of flank pain and abdominal pain and he has chronic pain at this time. He has a history of being on Trileptal. ALLERGIES: He has no known drug allergies. SOCIAL HISTORY: The patient lives in [facility]. Financially supported by [facility] and Medicare. SUBSTANCE ABUSE HISTORY: Denies drug and alcohol use. PSYCHIATRIC HISTORY: Paranoid schizophrenia, rule out dementia with psychosis. He has had multiple psychiatric admissions. FAMILY PSYCHIATRIC HISTORY: Denies. Strength is moderately better and he has a place to live. He is impulsive. MENTAL STATUS EXAMINATION: Appearance disheveled. Irritable, agitated. Affect guarded and restricted. Intellect poor. Mood is depressed and anxious. Motor activity, psychomotor agitation. Attention span is poor. Orientation x2. Speech is pressured. Thought process, disorganized and illogical. Thought content, auditory hallucinations, paranoid delusions. Insight and judgment is poor. DIAGNOSIS: Schizoaffective bipolar type. PLAN: My plan for this patient is I am going to restart this patient on a psychotropic medication regimen of Trileptal at a dose of 600 mg twice a day and Seroquel mg at bedtime. Provide him with supportive therapy and encourage him to interact appropriately with staff and other patients. He will continue to be followed by Psychiatry throughout his hospital course. Chart reviewed and discussed with staff. I would like to thank, Dr. Kvng Shaver, for this interesting consultation. I will be happy to follow this patient with you throughout his hospital course. Seen and assessed at bedside. Supportive therapy provided. The patient was seen and assessed at bedside. This patient was seen because Dr. Kvng Shaver has requested daily psychiatric consultation from myself because of his altered mental status and mood lability worrisome by the progression of his medical illness. Erick Stone M.D. DR: PRERNA JOB#: [id number] CC:
[2017-05-04] MEDS: Docusate 100mg cap ORAL SCH ×3 (09:00→18:00)
[2017-05-04] MEDS: Metoprolol Succinate XL 25mg tab ORAL SCH (09:28)
[2017-05-04] MEDS: Heparin 5000 units/ml inj SUBQ SCH ×2 (09:30→21:18)
--- NOTE | 2017-05-04 10:19 | GI Progress Note ---
Assessment/Plan Problems: (1) Nausea ICD Codes: R11.0 - Nausea SNOMED: 692682973 (2) Abdominal pain ICD Codes: R10.9 - Unspecified abdominal pain SNOMED: 35080696 (3) Anxiety ICD Codes: F41.9 - Anxiety disorder, unspecified SNOMED: 87256373 Status: stable Status Narrative Discussed with Dr. Skinner. Assessment/Plan KUB reviewed >> negative symptomatic treatment pain mgmt zofran prn ativan prn will advance diet bowel regime >> colace fu labs, utox fu psych / pain consult Subjective Subjective generalized pain Objective Last 24 Hour Vital Signs Date Time Temp Pulse Resp B/P (MAP) Pulse Ox O2 Delivery O2 Flow Rate FiO2 05/04/17 09:28 97 127/97 05/04/17 08:00 98.0 85 20 126/97 100 05/04/17 08:00 Room Air 05/04/17 04:41 98.2 73 17 105/70 96 05/04/17 00:00 97.3 64 20 127/84 98 05/03/17 20:00 98.6 79 20 120/76 98 05/03/17 16:00 97.5 82 20 133/90 96 05/03/17 12:00 97.3 90 20 140/94 98 Intake and Output 05/03/17 05/04/17 19:00 07:00 Intake Total 620 ml Balance 620 ml Intake Oral 240 ml IV Total 380 ml # Voids 4 3 # Bowel Movements 1 Height (Feet): 5 Height (Inches): 11.00 Weight (Pounds): 185 General Appearance: WD/WN, no apparent distress, alert Cardiovascular: normal rate Respiratory/Chest: normal breath sounds, no respiratory distress Abdominal Exam: normal bowel sounds, non tender, soft Extremities: normal range of motion, non-tender Hannah Perales N.P. May 04, 2017 10:19
[2017-05-04] MEDS: OXcarbazepine 150mg tab ORAL SCH ×2 (10:37→21:16)
[2017-05-04] MEDS: LORazepam 1mg tab ORAL PRN ×2 (10:38→21:16)
[2017-05-04 12:00] VITALS: BP 137/92
--- NOTE | 2017-05-04 12:09 | Cardiology Progress Note ---
Assessment/Plan Assessment/Plan 1. Accelerated hypertension, metoprolol succinate started with good control. 2. Sinus tachycardia, responded well to metoprolol. No further cardiac work up required. Subjective Subjective Denies chest pain or SOB. Objective Last 24 Hour Vital Signs Date Time Temp Pulse Resp B/P (MAP) Pulse Ox O2 Delivery O2 Flow Rate FiO2 05/04/17 09:28 97 127/97 05/04/17 08:00 98.0 85 20 126/97 100 05/04/17 08:00 Room Air 05/04/17 04:41 98.2 73 17 105/70 96 05/04/17 00:00 97.3 64 20 127/84 98 05/03/17 20:00 98.6 79 20 120/76 98 05/03/17 16:00 97.5 82 20 133/90 96 Intake and Output 05/03/17 05/04/17 19:00 07:00 Intake Total 620 ml Balance 620 ml Intake Oral 240 ml IV Total 380 ml # Voids 4 3 # Bowel Movements 1 Microbiology Date/Time Source Procedure Growth Status 05/02/17 23:00 Straight Cath Urine Culture - Preliminary Resulted Objective HEENT: normocephalic, atraumatic, bilateral eye normal inspection, bilateral eye PERRL, moist mucus membranes Neck: No JVD, no carotid bruit. Respiratory: lungs clear, normal breath sounds Cardiovascular: regular rate, rhythm, normal S1,S2, no murmurs , gallops or rubs. Gastrointestinal: normal bowel sounds, no mass, non-distended, no guarding, no rebound, tenderness Musculoskeletal: no edema, clubbing or cyanosis. ALTON CONNOLLY May 04, 2017 12:09
--- NOTE | 2017-05-04 13:25 | General Progress Note ---
Assessment/Plan Problem List: (1) UTI (urinary tract infection) ICD Codes: N39.0 - Urinary tract infection, site not specified SNOMED: 78200022 (2) HTN (hypertension) ICD Codes: I10 - Essential (primary) hypertension SNOMED: 42452198 (3) Dizziness ICD Codes: R42 - Dizziness and giddiness SNOMED: 102661874, 218624018 (4) Kidney stone ICD Codes: N20.0 - Calculus of kidney SNOMED: 69490809 (5) Anxiety ICD Codes: F41.9 - Anxiety disorder, unspecified SNOMED: 36912162 (6) Abdominal pain ICD Codes: R10.9 - Unspecified abdominal pain SNOMED: 66522810 (7) Nausea ICD Codes: R11.0 - Nausea SNOMED: 496670089 Status: unchanged Assessment/Plan ot pt diet abx cbc bmp am dc plan Subjective Constitutional: Reports: weakness Allergies: Coded Allergies: No Known Allergies (Unverified , 05/02/17) All Systems: reviewed and negative except above Subjective sl abd pain Objective Last 24 Hour Vital Signs Date Time Temp Pulse Resp B/P (MAP) Pulse Ox O2 Delivery O2 Flow Rate FiO2 05/04/17 12:00 97.7 97 20 137/92 99 05/04/17 09:28 97 127/97 05/04/17 08:00 98.0 85 20 126/97 100 05/04/17 08:00 Room Air 05/04/17 04:41 98.2 73 17 105/70 96 05/04/17 00:00 97.3 64 20 127/84 98 05/03/17 20:00 98.6 79 20 120/76 98 05/03/17 16:00 97.5 82 20 133/90 96 Intake and Output 05/03/17 05/04/17 19:00 07:00 Intake Total 620 ml Balance 620 ml Intake Oral 240 ml IV Total 380 ml # Voids 4 3 # Bowel Movements 1 Height (Feet): 5 Height (Inches): 11.00 Weight (Pounds): 185 General Appearance: alert EENT: normal ENT inspection Neck: normal alignment Cardiovascular: normal peripheral pulses, normal rate, regular rhythm Respiratory/Chest: chest wall non-tender, lungs clear, normal breath sounds Abdomen: normal bowel sounds, non tender, soft Extremities: normal inspection Edema: no edema noted Arm (L), no edema noted Arm (R), no edema noted Leg (L), no edema noted Leg (R), no edema noted Pedal (L), no edema noted Pedal (R), no edema noted Generalized Neurologic: responsive, motor weakness Skin: normal pigmentation, warm/dry DAKOTAH LYNCH May 04, 2017 13:25
[2017-05-04 13:37] LABS: EOSINOPHILS % (AUTO) 4.1 % (0.0-3.0); HEMATOCRIT 45.2 % (42.0-52.0); LYMPHOCYTES % (AUTO) 16.2 % (20.0-45.0); MEAN CORPUSCULAR VOLUME 92 FL (80-99); MONOCYTES % (AUTO) 4.7 % (1.0-10.0); PLATELET COUNT 276 K/UL (150-450); RED BLOOD COUNT 4.94 M/UL (4.70-6.10); RED CELL DISTRIBUTION WIDTH 12.4 % (11.6-14.8); WHITE BLOOD COUNT 6.7 K/UL (4.8-10.8)
[2017-05-04 14:27] LABS: ANION GAP 8 mmol/L (5-15); BLOOD UREA NITROGEN 14 mg/dL (7-18); CALCIUM 8.9 MG/DL (8.5-10.1); CARBON DIOXIDE 29 MMOL/L (21-32); CHLORIDE 104 MMOL/L (98-107); POTASSIUM 3.5 MMOL/L (3.5-5.1); SODIUM 141 MMOL/L (136-145)
[2017-05-04 16:00] VITALS: BP 124/75
[2017-05-04] MEDS: Morphine Sulfate 4mg/ml Inj IV PRN (17:22)
--- NOTE | 2017-05-04 18:52 | Pulmonology Progress Note ---
Assessment/Plan Problems: (1) Psychiatric disorder (2) Abdominal pain (3) HTN (hypertension) (4) Dizziness (5) Kidney stone Assessment/Plan symptomatic treatment dvt prophylaxis f/u GI recommendations. urology evaluation appreciated dc planning Subjective ROS Limited/Unobtainable: No Interval Events: still c/o pain Constitutional: Reports: no symptoms HEENT: Repors: no symptoms Respiratory: Reports: no symptoms Allergies: Coded Allergies: No Known Allergies (Unverified , 05/02/17) Objective Last 24 Hour Vital Signs Date Time Temp Pulse Resp B/P (MAP) Pulse Ox O2 Delivery O2 Flow Rate FiO2 05/04/17 16:00 97.3 85 20 124/75 98 05/04/17 12:00 97.7 97 20 137/92 99 05/04/17 09:28 97 127/97 05/04/17 08:00 98.0 85 20 126/97 100 05/04/17 08:00 Room Air 05/04/17 04:41 98.2 73 17 105/70 96 05/04/17 00:00 97.3 64 20 127/84 98 05/03/17 20:00 98.6 79 20 120/76 98 Intake and Output 05/03/17 05/04/17 19:00 07:00 Intake Total 620 ml Balance 620 ml Intake Oral 240 ml IV Total 380 ml # Voids 4 3 # Bowel Movements 1 General Appearance: WD/WN HEENT: normocephalic, atraumatic Respiratory/Chest: chest wall non-tender, lungs clear Genitourinary: normal external genitalia Extremities: no cyanosis Skin: no ulcers 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 Lymphatic: no neck adenopathy Microbiology Date/Time Source Procedure Growth Status 05/02/17 23:00 Straight Cath Urine Culture - Preliminary Resulted Laboratory Tests 05/04/17 13:00: White Blood Count 6.7, Red Blood Count 4.94, Hemoglobin 15.0, Hematocrit 45.2, Mean Corpuscular Volume 92, Mean Corpuscular Hemoglobin 30.3, Mean Corpuscular Hemoglobin Concent 33.1, Red Cell Distribution Width 12.4, Platelet Count 276, Mean Platelet Volume 6.6, Neutrophils (%) (Auto) 74.0, Lymphocytes (%) (Auto) 16.2L, Monocytes (%) (Auto) 4.7, Eosinophils (%) (Auto) 4.1H, Basophils (%) ( Auto) 1.0, Sodium Level 141, Potassium Level 3.5, Chloride Level 104, Carbon Dioxide Level 29, Anion Gap 8, Blood Urea Nitrogen 14, Creatinine 1.0, Estimat Glomerular Filtration Rate > 60, Glucose Level 127H, Calcium Level 8.9 Current Medications Medications (Trade) Dose Ordered Sig/Qian Route PRN Reason Start Time Stop Time Status Last Admin Dose Admin Acetaminophen (Tylenol) 650 mg Q4H PRN ORAL fever (temp>100.5F) 05/02/17 15:45 06/01/17 15:44 Al Hydroxide/Mg Hydroxide (Mylanta II) 30 ml Q6H PRN ORAL dyspepsia 05/02/17 15:45 06/01/17 15:44 05/04/17 09:31 Ceftriaxone Sodium 1 gm/ Sodium Chloride 55 ml @ 110 mls/hr Q24H IVPB 05/02/17 17:00 05/09/17 16:59 05/03/17 17:14 Dextrose (Dextrose 50%) STAT PRN IV Hypoglycemia 05/02/17 15:45 06/01/17 15:44 Diphenhydramine HCl (Benadryl) 25 mg Q6H PRN ORAL Itching/Pruritis 05/02/17 15:45 06/01/17 15:44 Docusate Sodium (Colace) 100 mg THREE TIMES A DAY ORAL 05/03/17 21:00 06/02/17 20:59 Famotidine (Pepcid I.v.) 20 mg Q12HR IVP 05/02/17 21:00 06/01/17 20:59 05/04/17 11:35 Heparin Sodium (Porcine) (Heparin 5000 units/ml) 5,000 units EVERY 12 HOURS SUBQ 05/02/17 21:00 06/01/17 20:59 05/04/17 09:30 Lorazepam (Ativan) 1 mg Q6H PRN ORAL For Anxiety 05/02/17 15:15 05/09/17 15:14 05/04/17 10:38 Metoprolol Succinate (Toprol XL) 25 mg DAILY ORAL 05/02/17 19:00 06/01/17 18:59 05/04/17 09:28 Morphine Sulfate (Morphine Sulfate) 2 mg Q4H PRN IVP Moderate Pain (Pain Scale 4-6) 05/02/17 15:45 05/09/17 15:44 05/02/17 20:59 Morphine Sulfate (Morphine Sulfate) 4 mg Q4H PRN IV Severe Pain (Pain Scale 7-10) 05/02/17 16:15 05/09/17 16:14 05/02/17 16:41 Nitroglycerin (Ntg) 0.4 mg Q5M X 3 DOSES PRN SL Prn Chest Pain 05/02/17 15:45 06/01/17 15:44 Ondansetron HCl (Zofran) 4 mg Q6H PRN IVP Nausea & Vomiting 05/02/17 15:45 06/01/17 15:44 05/02/17 17:34 Oxcarbazepine (Trileptal) 600 mg EVERY 12 HOURS ORAL 05/02/17 21:00 06/01/17 20:59 05/04/17 10:37 Polyethylene Glycol (Miralax) 17 gm HSPRN PRN ORAL Constipation 05/02/17 15:45 06/01/17 15:44 05/02/17 18:39 Quetiapine Fumarate (SEROquel) 300 mg BEDTIME ORAL 05/02/17 21:00 06/01/17 20:59 05/03/17 20:26 Temazepam (Restoril) 15 mg HSPRN PRN ORAL Insomnia 05/02/17 15:45 05/09/17 15:44 05/03/17 21:50 KELSIE EGAN May 04, 2017 18:52
[2017-05-04] MEDS: cefTRIAXone 1 GM in NS 55 ML IVPB SCH (18:53)
[2017-05-04 20:00] VITALS: BP 128/81
[2017-05-05] VITALS: BP 115/79
[2017-05-05 04:00] VITALS: BP 124/79
--- NOTE | 2017-05-05 08:05 | Pulmonology Progress Note ---
Assessment/Plan Assessment/Plan ASSESSMENT Left flank/abdominal pain HTN urinary retention with large PVR ? R renal mass Opioid dependency Schizoaffective disorder bipolar type PLAN OF CARE MS floor Empiric abx urine cx + mixed GPO , Renal US no hydro, normal nighat echogenicity, large PVR, ? R renal mass urology eval appreciated outpt CT A/P in 3 months and fup with urologist as per urol recs monitor voiding- no difficulties as per patient s/p IVF renal parameters, lytes stable, monitor and correct as needed GI follows KUB negative diet advanced as tolerated , a/emetic prn pain management urine tox+ opiates, barbiturates bowel regimen DVT GI prophylaxis PT/OT psych follows, optimized psych regimen case discussed and evaluated by supervising physician Subjective Allergies: Coded Allergies: No Known Allergies (Unverified , 05/02/17) Subjective complained of low abdominal pain voiding without difficulties Objective Last 24 Hour Vital Signs Date Time Temp Pulse Resp B/P (MAP) Pulse Ox O2 Delivery O2 Flow Rate FiO2 05/05/17 04:00 98.1 80 20 124/79 90 05/05/17 00:00 98.1 76 20 115/79 92 05/04/17 20:00 97.7 72 20 128/81 95 05/04/17 16:00 97.3 85 20 124/75 98 05/04/17 16:00 Room Air 05/04/17 12:00 Room Air 05/04/17 12:00 97.7 97 20 137/92 99 05/04/17 09:28 97 127/97 Intake and Output 05/04/17 05/05/17 19:00 07:00 Intake Total 320 ml Balance 320 ml Intake Oral 320 ml # Voids 4 2 # Bowel Movements 1 General Appearance: no acute distress, other - A/A/O x 3 slightly anxious male HEENT: normocephalic, atraumatic, anicteric Respiratory/Chest: lungs clear, no respiratory distress, no accessory muscle use Cardiovascular: normal peripheral pulses, normal rate, regular rhythm, no JVD Abdomen: normal bowel sounds - mild tenderness lower midabdomen Genitourinary: normal external genitalia Extremities: no edema, pedal pulses normal Neurologic/Psychiatric: no motor/sensory deficits, alert, oriented x 3, responsive Musculoskeletal: normal muscle bulk Microbiology Date/Time Source Procedure Growth Status 05/02/17 23:00 Straight Cath Urine Culture - Preliminary Resulted Laboratory Tests 05/04/17 13:00: White Blood Count 6.7, Red Blood Count 4.94, Hemoglobin 15.0, Hematocrit 45.2, Mean Corpuscular Volume 92, Mean Corpuscular Hemoglobin 30.3, Mean Corpuscular Hemoglobin Concent 33.1, Red Cell Distribution Width 12.4, Platelet Count 276, Mean Platelet Volume 6.6, Neutrophils (%) (Auto) 74.0, Lymphocytes (%) (Auto) 16.2L, Monocytes (%) (Auto) 4.7, Eosinophils (%) (Auto) 4.1H, Basophils (%) ( Auto) 1.0, Sodium Level 141, Potassium Level 3.5, Chloride Level 104, Carbon Dioxide Level 29, Anion Gap 8, Blood Urea Nitrogen 14, Creatinine 1.0, Estimat Glomerular Filtration Rate > 60, Glucose Level 127H, Calcium Level 8.9 Current Medications Medications (Trade) Dose Ordered Sig/Qian Route PRN Reason Start Time Stop Time Status Last Admin Dose Admin Acetaminophen (Tylenol) 650 mg Q4H PRN ORAL fever (temp>100.5F) 05/02/17 15:45 06/01/17 15:44 Al Hydroxide/Mg Hydroxide (Mylanta II) 30 ml Q6H PRN ORAL dyspepsia 05/02/17 15:45 06/01/17 15:44 05/04/17 09:31 Ceftriaxone Sodium 1 gm/ Sodium Chloride 55 ml @ 110 mls/hr Q24H IVPB 05/02/17 17:00 05/09/17 16:59 05/04/17 18:53 Dextrose (Dextrose 50%) STAT PRN IV Hypoglycemia 05/02/17 15:45 06/01/17 15:44 Diphenhydramine HCl (Benadryl) 25 mg Q6H PRN ORAL Itching/Pruritis 05/02/17 15:45 06/01/17 15:44 Docusate Sodium (Colace) 100 mg THREE TIMES A DAY ORAL 05/03/17 21:00 06/02/17 20:59 Famotidine (Pepcid I.v.) 20 mg Q12HR IVP 05/02/17 21:00 06/01/17 20:59 05/04/17 21:16 Heparin Sodium (Porcine) (Heparin 5000 units/ml) 5,000 units EVERY 12 HOURS SUBQ 05/02/17 21:00 06/01/17 20:59 05/04/17 21:18 Lorazepam (Ativan) 1 mg Q6H PRN ORAL For Anxiety 05/02/17 15:15 05/09/17 15:14 05/04/17 21:16 Metoprolol Succinate (Toprol XL) 25 mg DAILY ORAL 05/02/17 19:00 06/01/17 18:59 05/04/17 09:28 Morphine Sulfate (Morphine Sulfate) 2 mg Q4H PRN IVP Moderate Pain (Pain Scale 4-6) 05/02/17 15:45 05/09/17 15:44 05/02/17 20:59 Morphine Sulfate (Morphine Sulfate) 4 mg Q4H PRN IV Severe Pain (Pain Scale 7-10) 05/02/17 16:15 05/09/17 16:14 05/02/17 16:41 Nitroglycerin (Ntg) 0.4 mg Q5M X 3 DOSES PRN SL Prn Chest Pain 05/02/17 15:45 06/01/17 15:44 Ondansetron HCl (Zofran) 4 mg Q6H PRN IVP Nausea & Vomiting 05/02/17 15:45 06/01/17 15:44 05/02/17 17:34 Oxcarbazepine (Trileptal) 600 mg EVERY 12 HOURS ORAL 05/02/17 21:00 06/01/17 20:59 05/04/17 21:16 Polyethylene Glycol (Miralax) 17 gm HSPRN PRN ORAL Constipation 05/02/17 15:45 06/01/17 15:44 05/02/17 18:39 Quetiapine Fumarate (SEROquel) 300 mg BEDTIME ORAL 05/02/17 21:00 06/01/17 20:59 05/04/17 21:16 Temazepam (Restoril) 15 mg HSPRN PRN ORAL Insomnia 05/02/17 15:45 05/09/17 15:44 05/03/17 21:50 Pito BazanIvory prakash NP May 05, 2017 08:05
[2017-05-05 08:10] VITALS: BP 118/79
[2017-05-05 08:53] LABS: BASOPHILS % (AUTO) 1.1 % (0.0-2.0); EOSINOPHILS % (AUTO) 6.5 % (0.0-3.0); HEMATOCRIT 45.6 % (42.0-52.0); HEMOGLOBIN 15.6 G/DL (14.2-18.0); LYMPHOCYTES % (AUTO) 13.7 % (20.0-45.0); MEAN CORPUSCULAR VOLUME 92 FL (80-99); MONOCYTES % (AUTO) 6.2 % (1.0-10.0); NEUTROPHILS % (AUTO) 72.6 % (45.0-75.0); PLATELET COUNT 281 K/UL (150-450); RED BLOOD COUNT 4.98 M/UL (4.70-6.10); RED CELL DISTRIBUTION WIDTH 12.7 % (11.6-14.8); WHITE BLOOD COUNT 7.5 K/UL (4.8-10.8)
--- NOTE | 2017-05-05 08:58 | Consultation ---
History of Present Illness General Date patient seen: May 04, 2017 Time patient seen: 12:00 Chief Complaint: Abdominal Pain Referring physician: KELSIE BULLARD Reason for Consultation: ABDOMINAL PAIN Present Illness HPI 51 yo male with severe abdominal/flank pain. Reported to ER he was diagnosed with a kidney stone at outside institution. Here in hospital patient has been very difficult to control pain. Imaging here shows no signs of obstruction or stones. Small 3 cm hypoechoic area in right side not significant. Patient's history giving ability is poor. Allergies: Coded Allergies: No Known Allergies (Unverified , 05/02/17) Medication History Scheduled Clonazepam* (Klonopin*), 0.5 MG ORAL Q6H, (Reported) Lorazepam* (Ativan*), 1 MG ORAL Q6HR, (Reported) Modafinil* (Provigil), 200 MG ORAL DAILY, (Reported) Oxcarbazepine* (Trileptal*), 600 MG PO BID, (Reported) Pramipexole* (Mirapex*), 0.125 MG ORAL THREE TIMES A DAY, (Reported) Quetiapine Fumarate* (Seroquel*), 300 MG ORAL DAILY, (Reported) Scheduled PRN Eszopiclone (Lunesta), 3 MG ORAL BEDTIME PRN for Insomnia, (Reported) Temazepam* (Restoril*), 15 MG ORAL BEDTIME PRN for Insomnia, (Reported) Patient History History Provided By: Patient, Medical Record Healthcare decision maker N Resuscitation status Full Code Advanced Directive on File Past Medical/Surgical History Past Medical/Surgical History: (1) HTN (hypertension) Review of Systems Constitutional: Denies: no symptoms, see HPI, chills, sweats, fever, malaise, weakness, other Respiratory: Denies: no symptoms, see HPI, cough, orthopnea, shortness of breath, stridor, wheezing, VANG, sputum, other Cardiovascular: Denies: no symptoms, see HPI, chest pain, edema, palpitations, syncope, PND, other Gastrointestinal: Reports: abdominal pain Genitourinary: Denies: no symptoms, see HPI, discharge, dysuria, frequency, hematuria, pain, retention, incontinence, urgency, vag bleed/dc, other Musculoskeletal: Denies: no symptoms, see HPI, back pain, gout, joint pain, joint swelling, muscle pain, muscle stiffness, other Skin: Denies: no symptoms, see HPI, rash, change in color, change in hair/nails , dryness, lesions, other Psychiatric: Denies: no symptoms, see HPI, prior hx, anxiety, depressed feelings, emotional problems, SI, HI, hallucinations, other Neurological: Denies: no symptoms, see HPI, headache, numbness, paresthesia, seizure, tingling, tremors, focal weakness, syncope, dizziness, other Endocrine: Denies: no symptoms, see HPI, excessive sweating, flushing, intolerance to temperature, increased thirst, increased urine, unexplained weight loss, other Hematologic/Lymphatic: Denies: no symptoms, see HPI, anemia, blood clots, easy bleeding, easy bruising, swollen glands, diathesis, other Physical Exam General Appearance: moderate distress HEENT: normocephalic, atraumatic Respiratory/Chest: chest wall non-tender Cardiovascular/Chest: normal rate Abdomen: non tender, soft Last 24 Hour Vital Signs Date Time Temp Pulse Resp B/P (MAP) Pulse Ox O2 Delivery O2 Flow Rate FiO2 05/05/17 08:10 97.1 82 20 118/79 97 Room Air 05/05/17 04:00 98.1 80 20 124/79 90 05/05/17 00:00 98.1 76 20 115/79 92 05/04/17 20:00 97.7 72 20 128/81 95 05/04/17 16:00 97.3 85 20 124/75 98 05/04/17 16:00 Room Air 05/04/17 12:00 Room Air 05/04/17 12:00 97.7 97 20 137/92 99 05/04/17 09:28 97 127/97 Intake and Output 05/04/17 05/05/17 19:00 07:00 Intake Total 320 ml Balance 320 ml Intake Oral 320 ml # Voids 4 2 # Bowel Movements 1 Laboratory Tests Test 05/04/17 13:00 05/05/17 08:30 White Blood Count 6.7 K/UL (4.8-10.8) Pending Red Blood Count 4.94 M/UL (4.70-6.10) Pending Hemoglobin 15.0 G/DL (14.2-18.0) Pending Hematocrit 45.2 % (42.0-52.0) Pending Mean Corpuscular Volume 92 FL (80-99) Pending Mean Corpuscular Hemoglobin 30.3 PG (27.0-31.0) Pending Mean Corpuscular Hemoglobin Concent 33.1 G/DL (32.0-36.0) Pending Red Cell Distribution Width 12.4 % (11.6-14.8) Pending Platelet Count 276 K/UL (150-450) Pending Mean Platelet Volume 6.6 FL (6.5-10.1) Pending Neutrophils (%) (Auto) 74.0 % (45.0-75.0) Pending Lymphocytes (%) (Auto) 16.2 % (20.0-45.0) L Pending Monocytes (%) (Auto) 4.7 % (1.0-10.0) Pending Eosinophils (%) (Auto) 4.1 % (0.0-3.0) H Pending Basophils (%) (Auto) 1.0 % (0.0-2.0) Pending Sodium Level 141 MMOL/L (136-145) Pending Potassium Level 3.5 MMOL/L (3.5-5.1) Pending Chloride Level 104 MMOL/L (98-107) Pending Carbon Dioxide Level 29 MMOL/L (21-32) Pending Anion Gap 8 mmol/L (5-15) Blood Urea Nitrogen 14 mg/dL (7-18) Pending Creatinine 1.0 MG/DL (0.55-1.30) Pending Estimat Glomerular Filtration Rate > 60 mL/min (>60) Pending Glucose Level 127 MG/DL (74-106) H Pending Calcium Level 8.9 MG/DL (8.5-10.1) Pending Height (Feet): 5 Height (Inches): 11.00 Weight (Pounds): 185 Medications Current Medications Medications (Trade) Dose Ordered Sig/Qian Route PRN Reason Start Time Stop Time Status Last Admin Dose Admin Acetaminophen (Tylenol) 650 mg Q4H PRN ORAL fever (temp>100.5F) 05/02/17 15:45 06/01/17 15:44 Al Hydroxide/Mg Hydroxide (Mylanta II) 30 ml Q6H PRN ORAL dyspepsia 05/02/17 15:45 06/01/17 15:44 2/1/18 09:31 Ceftriaxone Sodium 1 gm/ Sodium Chloride 55 ml @ 110 mls/hr Q24H IVPB 05/02/17 17:00 05/09/17 16:59 05/04/17 18:53 Dextrose (Dextrose 50%) STAT PRN IV Hypoglycemia 05/02/17 15:45 06/01/17 15:44 Diphenhydramine HCl (Benadryl) 25 mg Q6H PRN ORAL Itching/Pruritis 05/02/17 15:45 06/01/17 15:44 Docusate Sodium (Colace) 100 mg THREE TIMES A DAY ORAL 05/03/17 21:00 06/02/17 20:59 Famotidine (Pepcid I.v.) 20 mg Q12HR IVP 05/02/17 21:00 06/01/17 20:59 05/04/17 21:16 Heparin Sodium (Porcine) (Heparin 5000 units/ml) 5,000 units EVERY 12 HOURS SUBQ 05/02/17 21:00 06/01/17 20:59 05/04/17 21:18 Lorazepam (Ativan) 1 mg Q6H PRN ORAL For Anxiety 05/02/17 15:15 05/09/17 15:14 05/04/17 21:16 Metoprolol Succinate (Toprol XL) 25 mg DAILY ORAL 05/02/17 19:00 06/01/17 18:59 05/04/17 09:28 Morphine Sulfate (Morphine Sulfate) 2 mg Q4H PRN IVP Moderate Pain (Pain Scale 4-6) 05/02/17 15:45 05/09/17 15:44 05/02/17 20:59 Morphine Sulfate (Morphine Sulfate) 4 mg Q4H PRN IV Severe Pain (Pain Scale 7-10) 05/02/17 16:15 05/09/17 16:14 05/02/17 16:41 Nitroglycerin (Ntg) 0.4 mg Q5M X 3 DOSES PRN SL Prn Chest Pain 05/02/17 15:45 06/01/17 15:44 Ondansetron HCl (Zofran) 4 mg Q6H PRN IVP Nausea & Vomiting 05/02/17 15:45 06/01/17 15:44 1/30/18 17:34 Oxcarbazepine (Trileptal) 600 mg EVERY 12 HOURS ORAL 05/02/17 21:00 06/01/17 20:59 05/04/17 21:16 Polyethylene Glycol (Miralax) 17 gm HSPRN PRN ORAL Constipation 05/02/17 15:45 06/01/17 15:44 05/02/17 18:39 Quetiapine Fumarate (SEROquel) 300 mg BEDTIME ORAL 05/02/17 21:00 06/01/17 20:59 05/04/17 21:16 Temazepam (Restoril) 15 mg HSPRN PRN ORAL Insomnia 05/02/17 15:45 05/09/17 15:44 05/03/17 21:50 Objective Narrative Imaging reviewed: Renal ultrasound is negative. KUB is negative Assessment/Plan Status: stable Assessment/Plan No stones, no evidence of obstruction. I do not believe patient's pain is renal in origin. I do not believe he has been diagnosed with a stone at outside institution. Renal "mass" is likely a cyst, but does warrant further imaging as an outpatient. It does not require inpatient stay to work it up as it would not be the source of his pain. 1. outpatient CT for right 3 cm renal mass 2. no intervention 3. pain is not likely in origin. Abdulkadir Castro M.D. May 05, 2017 08:58
[2017-05-05] MEDS: Docusate 100mg cap ORAL SCH ×2 (09:00→13:00)
[2017-05-05 09:07] VITALS: BP 122/93
[2017-05-05] MEDS: OXcarbazepine 150mg tab ORAL SCH (09:13)
[2017-05-05] MEDS: Metoprolol Succinate XL 25mg tab ORAL SCH (09:13)
[2017-05-05] MEDS: Heparin 5000 units/ml inj SUBQ SCH (09:15)
[2017-05-05 09:30] LABS: ANION GAP 9 mmol/L (5-15); BLOOD UREA NITROGEN 15 mg/dL (7-18); CARBON DIOXIDE 27 MMOL/L (21-32); CHLORIDE 105 MMOL/L (98-107); POTASSIUM 3.6 MMOL/L (3.5-5.1); SODIUM 141 MMOL/L (136-145)
--- NOTE | 2017-05-05 11:26 | General Progress Note ---
Assessment/Plan Problem List: (1) UTI (urinary tract infection) ICD Codes: N39.0 - Urinary tract infection, site not specified SNOMED: 57084553 (2) HTN (hypertension) ICD Codes: I10 - Essential (primary) hypertension SNOMED: 92152694 (3) Dizziness ICD Codes: R42 - Dizziness and giddiness SNOMED: 534542908, 511525856 (4) Kidney stone ICD Codes: N20.0 - Calculus of kidney SNOMED: 31747687 (5) Anxiety ICD Codes: F41.9 - Anxiety disorder, unspecified SNOMED: 48073858 (6) Abdominal pain ICD Codes: R10.9 - Unspecified abdominal pain SNOMED: 39663866 (7) Nausea ICD Codes: R11.0 - Nausea SNOMED: 967010711 Status: unchanged Assessment/Plan ot pt diet abx cbc bmp am dc plan Subjective Constitutional: Reports: weakness Allergies: Coded Allergies: No Known Allergies (Unverified , 05/02/17) All Systems: reviewed and negative except above Subjective c/o abd pain Objective Last 24 Hour Vital Signs Date Time Temp Pulse Resp B/P (MAP) Pulse Ox O2 Delivery O2 Flow Rate FiO2 05/05/17 09:13 102 122/93 05/05/17 09:07 102 122/93 05/05/17 08:10 97.1 82 20 118/79 97 Room Air 05/05/17 04:00 98.1 80 20 124/79 90 05/05/17 00:00 98.1 76 20 115/79 92 05/04/17 20:00 97.7 72 20 128/81 95 05/04/17 16:00 97.3 85 20 124/75 98 05/04/17 16:00 Room Air 05/04/17 12:00 Room Air 05/04/17 12:00 97.7 97 20 137/92 99 Intake and Output 05/04/17 05/05/17 19:00 07:00 Intake Total 320 ml Balance 320 ml Intake Oral 320 ml # Voids 4 2 # Bowel Movements 1 Laboratory Tests 05/04/17 13:00: White Blood Count 6.7, Red Blood Count 4.94, Hemoglobin 15.0, Hematocrit 45.2, Mean Corpuscular Volume 92, Mean Corpuscular Hemoglobin 30.3, Mean Corpuscular Hemoglobin Concent 33.1, Red Cell Distribution Width 12.4, Platelet Count 276, Mean Platelet Volume 6.6, Neutrophils (%) (Auto) 74.0, Lymphocytes (%) (Auto) 16.2L, Monocytes (%) (Auto) 4.7, Eosinophils (%) (Auto) 4.1H, Basophils (%) ( Auto) 1.0, Sodium Level 141, Potassium Level 3.5, Chloride Level 104, Carbon Dioxide Level 29, Anion Gap 8, Blood Urea Nitrogen 14, Creatinine 1.0, Estimat Glomerular Filtration Rate > 60, Glucose Level 127H, Calcium Level 8.9 05/05/17 08:30: White Blood Count 7.5, Red Blood Count 4.98, Hemoglobin 15.6, Hematocrit 45.6, Mean Corpuscular Volume 92, Mean Corpuscular Hemoglobin 31.3H, Mean Corpuscular Hemoglobin Concent 34.1, Red Cell Distribution Width 12.7, Platelet Count 281, Mean Platelet Volume 6.7, Neutrophils (%) (Auto) 72.6, Lymphocytes (%) (Auto) 13.7L, Monocytes (%) (Auto) 6.2, Eosinophils (%) (Auto) 6.5H, Basophils (%) ( Auto) 1.1, Sodium Level 141, Potassium Level 3.6, Chloride Level 105, Carbon Dioxide Level 27, Anion Gap 9, Blood Urea Nitrogen 15, Creatinine 1.0, Estimat Glomerular Filtration Rate > 60, Glucose Level 86, Calcium Level 9.0 Height (Feet): 5 Height (Inches): 11.00 Weight (Pounds): 185 General Appearance: alert EENT: normal ENT inspection Neck: normal alignment Cardiovascular: normal peripheral pulses, normal rate, regular rhythm Respiratory/Chest: chest wall non-tender, lungs clear, normal breath sounds Abdomen: normal bowel sounds, non tender, soft Extremities: normal inspection Edema: no edema noted Arm (L), no edema noted Arm (R), no edema noted Leg (L), no edema noted Leg (R), no edema noted Pedal (L), no edema noted Pedal (R), no edema noted Generalized Neurologic: responsive, motor weakness Skin: normal pigmentation, warm/dry DAKOTAH LYNCH May 05, 2017 11:26
--- NOTE | 2017-05-05 11:26 | GI Progress Note ---
Assessment/Plan Problems: (1) Nausea ICD Codes: R11.0 - Nausea SNOMED: 753111434 (2) Abdominal pain ICD Codes: R10.9 - Unspecified abdominal pain SNOMED: 78570027 (3) Anxiety ICD Codes: F41.9 - Anxiety disorder, unspecified SNOMED: 99726978 Status: stable Status Narrative Discussed with Dr. Skinner. Assessment/Plan KUB reviewed >> negative symptomatic treatment pain mgmt zofran prn ativan prn will advance diet bowel regime >> colace fu labs, utox fu psych / pain consult outpatient GI procedures Subjective Subjective generalized pain Objective Last 24 Hour Vital Signs Date Time Temp Pulse Resp B/P (MAP) Pulse Ox O2 Delivery O2 Flow Rate FiO2 05/05/17 09:13 102 122/93 05/05/17 09:07 102 122/93 05/05/17 08:10 97.1 82 20 118/79 97 Room Air 05/05/17 04:00 98.1 80 20 124/79 90 05/05/17 00:00 98.1 76 20 115/79 92 05/04/17 20:00 97.7 72 20 128/81 95 05/04/17 16:00 97.3 85 20 124/75 98 05/04/17 16:00 Room Air 05/04/17 12:00 Room Air 05/04/17 12:00 97.7 97 20 137/92 99 Intake and Output 05/04/17 05/05/17 19:00 07:00 Intake Total 320 ml Balance 320 ml Intake Oral 320 ml # Voids 4 2 # Bowel Movements 1 Laboratory Tests Test 05/04/17 13:00 05/05/17 08:30 White Blood Count 6.7 K/UL (4.8-10.8) 7.5 K/UL (4.8-10.8) Red Blood Count 4.94 M/UL (4.70-6.10) 4.98 M/UL (4.70-6.10) Hemoglobin 15.0 G/DL (14.2-18.0) 15.6 G/DL (14.2-18.0) Hematocrit 45.2 % (42.0-52.0) 45.6 % (42.0-52.0) Mean Corpuscular Volume 92 FL (80-99) 92 FL (80-99) Mean Corpuscular Hemoglobin 30.3 PG (27.0-31.0) 31.3 PG (27.0-31.0) H Mean Corpuscular Hemoglobin Concent 33.1 G/DL (32.0-36.0) 34.1 G/DL (32.0-36.0) Red Cell Distribution Width 12.4 % (11.6-14.8) 12.7 % (11.6-14.8) Platelet Count 276 K/UL (150-450) 281 K/UL (150-450) Mean Platelet Volume 6.6 FL (6.5-10.1) 6.7 FL (6.5-10.1) Neutrophils (%) (Auto) 74.0 % (45.0-75.0) 72.6 % (45.0-75.0) Lymphocytes (%) (Auto) 16.2 % (20.0-45.0) L 13.7 % (20.0-45.0) L Monocytes (%) (Auto) 4.7 % (1.0-10.0) 6.2 % (1.0-10.0) Eosinophils (%) (Auto) 4.1 % (0.0-3.0) H 6.5 % (0.0-3.0) H Basophils (%) (Auto) 1.0 % (0.0-2.0) 1.1 % (0.0-2.0) Sodium Level 141 MMOL/L (136-145) 141 MMOL/L (136-145) Potassium Level 3.5 MMOL/L (3.5-5.1) 3.6 MMOL/L (3.5-5.1) Chloride Level 104 MMOL/L (98-107) 105 MMOL/L (98-107) Carbon Dioxide Level 29 MMOL/L (21-32) 27 MMOL/L (21-32) Anion Gap 8 mmol/L (5-15) 9 mmol/L (5-15) Blood Urea Nitrogen 14 mg/dL (7-18) 15 mg/dL (7-18) Creatinine 1.0 MG/DL (0.55-1.30) 1.0 MG/DL (0.55-1.30) Estimat Glomerular Filtration Rate > 60 mL/min (>60) > 60 mL/min (>60) Glucose Level 127 MG/DL (74-106) H 86 MG/DL (74-106) Calcium Level 8.9 MG/DL (8.5-10.1) 9.0 MG/DL (8.5-10.1) Height (Feet): 5 Height (Inches): 11.00 Weight (Pounds): 185 General Appearance: WD/WN, no apparent distress, alert Cardiovascular: normal rate Respiratory/Chest: normal breath sounds, no respiratory distress Abdominal Exam: normal bowel sounds, non tender, soft Extremities: normal range of motion, non-tender Hannah Perales N.P. May 05, 2017 11:26
[2017-05-05] MEDS ORDERED: SEROQUEL300 MG ORAL (11:40)
[2017-05-05] MEDS ORDERED: LEXAPRO10 MG ORAL (11:42)
[2017-05-05 12:15] VITALS: BP 128/92
--- NOTE | 2017-05-05 12:54 | Progress Note ---
DATE: 05/03/2017 SUBJECTIVE: The patient continues to presents with severe abdominal pain and pain seeking behaviors. The patient is anxious, compliant with his medications, currently being treated with some morphine IV. MENTAL STATUS EXAMINATION: The patient is alert, oriented times self, place, and situation he is in. Mood is anxious. Affect is constricted. Congruent mood. Thought process is concrete. Thought content, no suicidal or homicidal ideations. ASSESSMENT: 1. Anxiety disorder. 2. Schizophrenia by history. PLAN: 1. We will continue the Seroquel. 2. . 3. Recommend long-acting pain medications. Lesley Navarro M.D. DR: Robles JOB#: [id number] CC:
--- NOTE | 2017-05-05 12:55 | Progress Note ---
DATE: 05/03/2017 NOTE: POOR AUDIO SUBJECTIVE: The patient is a 51-year-old male patient the hospital because of flank pain, but he has altered mental status, confusion, mood lability, secondary to the stress of his medical illness. MENTAL STATUS EXAMINATION: The patient is a 51-year-old male with psychomotor agitation. Mood is irritable and agitated. Affect is guarded and restricted. Thought process is disorganized and illogical. Denies any current suicidal or homicidal thoughts. Insight and judgment is poor. paranoia. DIAGNOSIS: Schizoaffective, bipolar type. PLAN: Continue titrating up with the patient's psychotropic medications to prevent any further decline in his cognition. . Chart was reviewed and discussed with the staff. Seen and assessed at the bedside. . Erick Stone M.D. DR: MARTHA JOB#: [id number] CC:
--- NOTE | 2017-05-05 12:56 | Consultation ---
DATE OF CONSULTATION: 05/02/2017 CARDIOLOGY CONSULTATION CONSULTING PHYSICIAN: Fran Rosales M.D. REFERRING PHYSICIAN: Kvng Shaver D.O. REASON FOR CONSULTATION: Management of hypertension and tachycardia. HISTORY OF PRESENT ILLNESS: The patient is a very unfortunate 51-year-old gentleman, who presents to the hospital initially with left flank pain. Apparently, he had been diagnosed with renal stone according to the CT scan done in the outside hospital. The pain according to the patient is persistent. Denies any hematuria or fever. He had nausea earlier. The patient also had associated anxiety. It also appears that the patient has some underlying psychiatric disease and perhaps drug-seeking behavior. At the time of arrival to the hospital, blood pressure was elevated at 147/98 mmHg and heart rate was 97 beats per minute. The patient was admitted to Med/Surg for evaluation and management of the above condition. Cardiology consultation was made at the request of Dr. Shaver for management of accelerated hypertension as well as tachycardia. PAST MEDICAL HISTORY: Hypertension, history of psychiatric disorder, history of traumatic brain injury, and history of kidney stones. PAST SURGICAL HISTORY: None. ALLERGIES: No known drug allergies. MEDICATIONS: List of medications as an outpatient, Klonopin 0.5 mg q.6 hours, 3 mg at bedtime, Ativan 1 mg q.6 hours, Provigil 200 mg p.o. daily, Trileptal 600 mg twice daily, Mirapex 0.125 mg three times a day, Seroquel 300 mg p.o. daily, and Restoril 15 mg nightly p.r.n. insomnia. SOCIAL HISTORY: Denies any tobacco, alcohol, or illicit drug use. He lives in an assisted living facility. REVIEW OF SYSTEMS: HEENT: Denies any headache, diplopia, or blurred vision. CONSTITUTIONAL: Appears to be somewhat anxious. Denies any fevers, chills, night sweats, or weight loss. CARDIOVASCULAR: Denies any chest pain, shortness of breath, PND, orthopnea, or leg swelling. PULMONARY: Denies any cough, hemoptysis, or wheezing. GASTROINTESTINAL: Complains of nausea and some left flank pain. No diarrhea, constipation, or GI bleed. GENITOURINARY: Denies any hematuria, dysuria, or incontinence. NEUROLOGY: Denies any motor dysfunction, sensory deficit, or altered speech. PHYSICAL EXAMINATION: VITAL SIGNS: Blood pressure was 147/,98 pulse of 97, respirations 20, temperature 98.6 degrees Fahrenheit, and O2 saturation 99% on room air. GENERAL: The patient is a very unfortunate 51-year-old gentleman, in no apparent respiratory distress. Appears to be anxious and walking in the hallway on the [address] [place] [address] unit. HEENT: Atraumatic, normocephalic. Anicteric. Pupils are equal, round, and reactive to light and accommodation. Extraocular muscles intact. NECK: JVP is less than 5 cm. No carotid bruits. Carotid upstrokes 2+ bilaterally. CARDIOVASCULAR: Normal S1, S2. Regular rate and rhythm. No murmurs, gallops, or rubs. PMI is at the fourth intercostal space in the midclavicular line. LUNGS: Clear to auscultation bilaterally. ABDOMEN: Soft, nontender, and nondistended. No hepatosplenomegaly. Positive bowel sounds. EXTREMITIES: No evidence of edema, clubbing, or cyanosis. LABORATORY AND DIAGNOSTIC DATA: Laboratory findings, WBC 7.3, hemoglobin of 15.1, hematocrit 37.0, and platelet count 331. Sodium is 140, potassium is 3.5, chloride 102, bicarbonate 31, BUN 10, creatinine 1.0, glucose is 95, and calcium is 9.2. INR is 1.0. Toxicology showed positive opiates and barbiturates. A 12-lead electrocardiogram, not available at this time, and chest x-ray not done and not available. ASSESSMENT AND PLAN: The patient is a very unfortunate 51-year-old gentleman, seen in Cardiology consultation at the request of Dr. Shaver. 1. Accelerated hypertension. The patient somewhat and might have pain as the reason for hypertension. I would continue to monitor his blood pressure throughout the hospitalization and pain control requires to be done. 2. Tachycardia, this could be secondary to pain, some question regarding drug-seeking behavior or possibly withdrawal. The patient had some underlying psychiatric behavior, walking around the corridor in the [facility] unit. I do not intend of starting him on any antihypertensive medication at this time. 3. Renal stone. Adequate hydration. Nephrology consultation. Imaging data. 4. History of psychiatric problem. I would like to thank, Dr. Shaver, for the courtesy of this consultation. Fran Rosales M.D. DR: TARIK JOB#: [id number] CC:
--- NOTE | 2017-05-05 12:56 | Progress Note ---
DATE: 05/04/2017 SUBJECTIVE: The patient is presenting with depressed mood, anxiety, agitation, and constantly pacing around the unit. He has poor insight and judgment. MENTAL STATUS EXAMINATION: Alert and oriented times self, place, situation, and time. Mood is anxious. Affect is constricted, congruent with mood. Thought process is concrete. Thought content, no suicidal or homicidal ideations. ASSESSMENT: 1. Somatoform disorder. 2. Agitation. 3. Opiate pain dependence. PLAN: 1. We will continue the current medication. 2. Provide the patient with supportive therapy and reality orientation. Lesley Navarro M.D. DR: EDMUNDO JOB#: [id number] CC:
--- NOTE | 2017-05-05 12:56 | Consultation ---
DATE OF CONSULTATION: 05/04/2017 INFECTIOUS DISEASES CONSULTATION CONSULTING PHYSICIAN: Efren Steinberg M.D. PRIMARY ATTENDING PHYSICIAN: Kvng Shaver D.O. REASON FOR CONSULT: Urinary tract infection. HISTORY OF PRESENT ILLNESS: The patient is a 51-year-old male admitted on 05/02/2017 because of flank pain on the left side. The patient has psychiatric problem including schizoaffective. He was told to have kidney stones. The patient had a renal ultrasound that ruled out hydronephrosis and there was no stone in the kidneys, but there was a hypoechogenic area in the right kidney. The patient also had a large postvoid residual bladder. PAST MEDICAL HISTORY: Significant for hypertension, schizoaffective, bipolar, hopefully opiate dependence, and anxiety. MEDICATIONS: Colace, Seroquel, heparin, famotidine, Trileptal, metoprolol, ceftriaxone, morphine, Tylenol, polyethylene glycol, Zofran, diphenhydramine, and Mylanta. SOCIAL HISTORY: Single. Lives with mother. Denies alcohol, drug abuse, or smoking. REVIEW OF SYSTEMS: Today, he does not have flank pain, but he complains of abdominal pain. No fever. No chills. No problem passing urine. The patient is agitated and walking in the hallway. PHYSICAL EXAMINATION: VITAL SIGNS: Temperature 97.7, pulse 97, and blood pressure 137/92. GENERAL APPEARANCE: No acute distress. HEAD AND NECK: [place] conjunctiva. HEART: S1, S2 regular. LUNGS: Clear. ABDOMEN: Soft, nondistended. EXTREMITIES: Has no edema. NEUROLOGIC: Awake, alert, and oriented x3. LABORATORY AND DIAGNOSTIC DATA: Sodium 140, potassium 3.8, chloride 105, bicarb 27, BUN 13, creatinine 1, and glucose 82. WBC 7, hemoglobin 14.2, hematocrit 43, and platelets 273,000. UA showed WBC of 0 to 2. Nitrite negative. Leukocyte esterase 1+. Renal ultrasound showed 3 cm hypoechogenic area in the interpolar region of right kidney, could represent a solid renal mass. Urine culture is pending. IMPRESSION: 1. Abnormal renal ultrasound. We will try to rule out mass in the kidney. 2. Questionable urinary tract infection. 3. The patient has opioid dependence. 4. Hypertension. 5. Schizoaffective disorder. RECOMMENDATIONS: We will follow up the urine culture. We will continue Rocephin. We will order CT scan of the abdomen and pelvis with contrast. At the end of my exam, I thank Dr. Kvng Shaver for involving me in the care of this patient. Efren Steinberg M.D. DR: MAYA JOB#: [id number] CC: ALISHA
[2017-05-05] MEDS: LORazepam 1mg tab ORAL PRN (14:51)
[2017-05-05 16:00] VITALS: BP 125/93
--- NOTE | 2017-05-05 16:45 | Progress Note ---
DATE: 05/04/2017 SUBJECTIVE: This is a 51-year-old patient with flank pain. This patient is confused and disorganized. He has altered mental status. Cognition has declined below baseline secondary to stress due to his medical illness. Because his cognition has declined below baseline, his attending has requested daily psychiatric consultation to prevent any further decline in the patient's cognition and stabilize his mood. MENTAL STATUS EXAMINATION: This is a 51-year-old male with psychomotor retardation. Mood is depressed. Affect guarded and restricted. Thought process is disorganized and illogical. No signs of any suicidal or homicidal thoughts. Insight and judgment is poor. DIAGNOSIS: Bipolar 2. PLAN: Continue titrating up on the patient's psychotropic medications to help stabilize his mood. Chart was reviewed and discussed with the staff. Seen and assessed at the bedside. Supportive therapy provided. Erick Stone M.D. DR: PADMINI JOB#: [id number] CC:
[2017-05-05] MEDS ORDERED: Tubing IV Secondary IV ONE (16:59)
[2017-05-05] MEDS ORDERED: D5 1/2NS 1000ml IV ONE (16:59)
--- NOTE | 2017-05-05 22:15 | Progress Note ---
DATE: 05/05/2017 SUBJECTIVE: The patient is extremely agitated and constantly hovering around the nursing station asking for pain medication and benzodiazepine. He believes that he has something serious going on with his kidneys or stomach. He refused to go for CT scan today due to severe agitation. He could not tolerate the test. Therefore, he was returned. The patient has med seeking behavior including pain medication and benzodiazepines, and the nurses have difficulty redirecting the patient. MENTAL STATUS EXAMINATION: Patient is alert and oriented times self, place, situation, and time. He is cooperative with me during the evaluation; however, his mood is severely agitated. Affect is constricted, congruent with mood. Thought process, the patient perseverates and he has serious medical condition. Thought content, no suicidal or homicidal ideations. No AVH. He may have somatic delusions. Cognition is intact. Insight and judgment is poor. ASSESSMENT: 1. Somatoform disorder. 2. Opiate pain medication dependence. 3. Agitation. PLAN: 1. The patient will be continued on Seroquel 300 b.i.d. Avoid short-acting pain medications. Continue Ativan p.r.n. 2. Provide the patient with reality orientation. Lesley Navarro M.D. DR: SHONA JOB#: [id number] CC:
--- NOTE | 2017-05-06 05:30 | Progress Note ---
DATE: 05/05/2017 SUBJECTIVE: The patient is a 51-year-old male patient, came into the hospital with flank pain. He has had some mood lability, racing thoughts, and depression, secondary to stress due to his medical illness, so his attending his requested daily psychiatric consultation. MENTAL STATUS EXAMINATION: The patient is a 51-year-old male with psychomotor agitation. Mood is irritable and agitated. Racing thoughts. Slightly pressured speech. No signs of any suicidal or homicidal thoughts. Denies . Denies any paranoid delusions. Denies any . DIAGNOSIS: Bipolar 2. PLAN: Titrate up on his medications to stabilize his mood. Chart reviewed and discussed with staff. Seen and assessed at bedside. Supportive therapy provided for 15 to 20 minutes. Erick Stone M.D. DR: PRERNA JOB#: [id number] CC:
--- NOTE | 2017-05-06 05:30 | Consultation ---
DATE OF CONSULTATION: 05/04/2017 NOTE: POOR AUDIO PSYCHOTHERAPY CONSULTATION PROGRESS NOTE CONSULTING PHYSICIAN: Jose Phelps M.D. TREATING ATTENDING PHYSICIAN: Kvng Shaver D.O. HISTORY OF PRESENT ILLNESS: The patient is a 51-year-old male patient from [facility]. The patient is admitted to the hospital for flank pain. The patient has increased anxiety and irritability since he has been in the hospital and he has been restless. The patient has a history of mental illness including a diagnosis of schizoaffective disorder, bipolar type. Due to his mood instability, agitation, restlessness, he is referred for psychotherapeutic services. This clinician assessed this patient. The patient states that he has been feeling very anxious and restless, wanting to go back home, back to nursing facility, states that being in the hospital makes him more agitated. He states that he has a history of mental illness and has been treated by a psychiatrist in in the past. The patient at this time denies suicidal or homicidal thoughts of ideation. Denies auditory or visual hallucinations at this time. PAST MEDICAL HISTORY: The patient did not have a medical history. ALLERGIES: The patient has no known drug allergies. SUBSTANCE ABUSE HISTORY: The patient denies history of alcohol use, illicit substance use, or smoking cigarettes. PSYCHIATRIC HISTORY: The patient has a history of schizoaffective disorder and has been treated with psychotropic medications in the past. SOCIAL HISTORY: The patient is a 51-year-old male patient from [facility]. Financially sustained through [employer]. He is a single male patient. MENTAL STATUS EXAMINATION: The patient is alert and oriented to person and place. His mood is irritable and anxious. Affect labile. Thought process is disorganized. Thought content . The patient has poor attention and concentration. Poor insight, judgment, and impulse control. assessed the patient's mental status. reality orientation and supportive psychotherapy. DIAGNOSIS: Schizoaffective disorder, bipolar type. Continue with behavioral management. This clinician has reviewed the patient's chart and discussed the treatment with treatment team. Jose Phelps PsyD. DR: KOREY JOB#: [id number] CC:
--- NOTE | 2017-05-09 11:02 | Discharge Summary ---
Discharge Summary Hospital Course Date of Admission May 02, 2017 at 13:00 Date of Discharge May 05, 2017 at 17:00 Admitting Diagnosis flank pain HPI Bhanu Chowdhury is a 51 year old male who was admitted on May 02, 2017 at 13:00 for Flank Pain Hospital Course dc summary #[id number] Discharge Medications Continued Medications: Clonazepam* (Klonopin*) 0.5 Mg Tablet 0.5 MG ORAL Q6H, #15 TAB 0 Refills Escitalopram Oxalate* (Lexapro*) 10 Mg Tablet 10 MG ORAL DAILY, TAB Eszopiclone (Lunesta) 3 Mg Tablet 3 MG ORAL BEDTIME PRN for Insomnia, TAB 0 Refills Lorazepam* (Ativan*) 1 Mg Tablet 1 MG ORAL Q6HR, TAB Modafinil* (Provigil) 100 Mg Tablet 200 MG ORAL DAILY, TAB 0 Refills Oxcarbazepine* (Trileptal*) 600 Mg Tablet 600 MG PO BID, TAB Pramipexole* (Mirapex*) 0.25 Mg Tablet 0.125 MG ORAL THREE TIMES A DAY, TAB Quetiapine Fumarate (Seroquel) 300 Mg Tablet 300 MG ORAL TWICE A DAY, TAB Temazepam* (Restoril*) 15 Mg Capsule 15 MG ORAL BEDTIME PRN for Insomnia, CAP Discharge Condition Upon Discharge: stable Discharge Disposition Patient was discharged to SNF Discharge Diagnoses: Pito (Chaka)Ivory NP May 09, 2017 11:02
--- NOTE | 2017-05-10 03:15 | Discharge Summary 2 SIG ---
DATE OF ADMISSION: 05/02/2017 DATE OF DISCHARGE: 05/05/2017 REASON FOR ADMISSION: The patient is a 51-year-old male, presented with left flank pain. According to the patient, he had a CT done in another facility and he had been told that he had a renal stone. Pain persisted. No hematuria. No fever. Nausea, but no vomiting. Bowel movement unremarkable. Pain described as severe burning radiating from the left flank anteriorly and constant. Vital signs were stable. No leukocytosis. Stable hemoglobin and hematocrit. Stable renal parameters. Urine analysis revealed +2 ketones. Repeated shows +1 protein, +3 ketones, +1 leukocyte esterase, no pyuria, and no bacteria. Renal ultrasound revealed 3 cm diameter hypoechoic area in the interpolar region of the right kidney, possible solid renal mass. Further evaluation with contrast CT recommended. Negative for hydronephrosis. Large postvoid residual bladder volume, 171 mL. Chest x-ray revealed no acute cardiopulmonary pathology. ADMITTING DIAGNOSES: 1. Intractable left flank pain. 2. Possible kidney stone. 3. Hypertension. 4. Dizziness. HOSPITAL COURSE: The patient was admitted. The patient was started on empiric antibiotics. Urine culture revealed mixed gram-positive organism. Antibiotics were discontinued. Urology consult was requested. Urologist recommended outpatient CT of the abdomen and pelvis in three months and follow up with the urologist at that time. Monitor for voiding. No difficulties with voiding as per patient. Per urologist, after he personally reviewed abdominal ultrasound, no evidence of obstruction and no stones. Urologist did not think that the pain was renal in origin. He did not believe that the patient was diagnosed with renal stone at outside facility. Renal mass was likely a cyst, but recommended further imaging as an outpatient in three months. Renal mass/ cyst did not require inpatient stay to work it up, as it was not likely the source of his pain. He stated that no further genitourinary interventions were necessary at this time. The pain was not likely genitourinary in origin and recommended outpatient CT of the abdomen and pelvis for right 3 cm renal mass and follow up with the urologist in three months. GI closely followed the patient as well. KUB was negative. Symptomatic treatment provided. Pain management was addressed. Antiemetic provided as needed. Ativan given p.r.n. for anxiety. Diet was advanced as tolerated. The patient was able to tolerate diet. Bowel regimen instituted. Psychiatric consult was requested for possible control of anxiety. GI recommended outpatient GI procedure. The patient had stable vital signs., tolerated diet, and appeared stable. Blood pressure was stable and was closely monitored. Psychiatrist seen and evaluated the patient and diagnosed the patient with a somatoform disorder, opiate dependency, agitation, as well as bipolar type 2. Psychiatric medication regimen was optimized. Renal parameters were closely monitored as well as electrolytes. Both were stable, status post IV fluids. Urine tox screen showed opiates and barbiturates. The patient was counseled on abstinence from the street drugs and to avoid overuse of prescribed narcotics. DVT and GI prophylaxis provided. The patient was stable for discharge back to custodial facility and follow up with the urologist in three months for outpatient CT of the abdomen and pelvis as well as followup with medical doctor at the facility. FINAL DIAGNOSES: 1. Left flank/abdominal pain. 2. Somatoform disorder. 3. Hypertension. 4. Urinary retention with large postvoid residual, resolved. 5. Questionable right renal mass versus cyst 6. Opioid dependency. 7. Schizoaffective disorder, bipolar type. DISCHARGE INSTRUCTIONS: Patient was discharged to the custodial facility. DISCHARGE MEDICATIONS: see medications reconciliation list Kvng Shaver D.O. Ivory PeralesMargaretville Memorial HospitalDeon N.PKaykay DR: NAM JOB#: [id number] CC: ALISHA
== END 2017-05-05 17:00 | DRG 392 ==
LOC: EDBD 11:22 → EMR 11:55 → 4E 13:00 → EDBEDREQ 13:27 → 4E 05-03 20:06
DX: R10.9 Unspecified abdominal pain (principal); F11.20 Opioid dependence, uncomplicated; I10 Essential (primary) hypertension; N28.89 Other specified disorders of kidney and ureter; F25.0 Schizoaffective disorder, bipolar type; Z87.442 Personal history of urinary calculi; R42 Dizziness and giddiness; F41.9 Anxiety disorder, unspecified; F45.9 Somatoform disorder, unspecified; R33.9 Retention of urine, unspecified; N28.1 Cyst of kidney, acquired; R45.1 Restlessness and agitation
CPT/HCPCS: 36415; 74018; 76775; 80048; 80053; 80307; 81001; 81003; 82150; 83690; 85025; 85610; 85730; 87081; 87086; 97803; 99285; J2405

== ENCOUNTER 2017-06-13 10:50 | Outpatient (CLI) | payer MEDICARE ==
[~2017-06-13] VITALS: Ht 170.2 cm; Wt 89.4 kg
[~2017-06-13 10:50] MED LIST: ATIVAN1 MG ORAL; KLONOPIN0.5 MG ORAL; LEXAPRO10 MG ORAL; LUNESTA3 MG ORAL; MODAFINIL100 MG ORAL; PRAMIPEXOLE D0.25 MG ORAL; QUETIAPINE FUMA25 MG ORAL; RESTORIL15 MG ORAL; SEROQUEL300 MG ORAL; TRILEPTAL600 MG PO
[2017-06-13 13:24] VITALS: BP 114/79
--- NOTE | 2017-06-14 12:52 | GI Initial Consult Note ---
History of Present Illness General Date patient seen: Jun 13, 2017 Time patient seen: 11:00 Referring physician: DAKOTAH LYNCH Reason for Consultation: ABDOMINAL PAIN Present Illness HPI 51 year old male referred by Dr. Lynch to be evaluated for abdominal pain x 1 month. The patient, whom [facility] is accompanied today by her sister. The patient presents today with generalized diffused abdominal pain and constipation. Labs/imaging studies reviewed show cholelithiasis without any CBD dilation. Denies any unintentional weight loss or changes in dietary habits. No signs of abuse or neglect. Patient is not fall risk. No history of endoscopy / colonoscopies. Home Meds Reported Medications Escitalopram Oxalate* (LEXAPRO*) 10 Mg Tablet, 10 MG ORAL DAILY, TAB 05/05/17 Quetiapine Fumarate (SEROQUEL) 300 Mg Tablet, 300 MG ORAL TWICE A DAY, TAB 05/05/17 Lorazepam* (ATIVAN*) 1 Mg Tablet, 1 MG ORAL Q6HR, TAB 05/02/17 Clonazepam* (KLONOPIN*) 0.5 Mg Tablet, 0.5 MG ORAL Q6H, #15 TAB 0 Refills 05/02/17 Eszopiclone (LUNESTA) 3 Mg Tablet, 3 MG ORAL BEDTIME Y for Insomnia, TAB 0 Refills 05/02/17 Quetiapine Fumarate* (SEROQUEL*) 25 Mg Tablet, 300 MG ORAL DAILY, TAB 05/02/17 Modafinil* (PROVIGIL) 100 Mg Tablet, 200 MG ORAL DAILY, TAB 0 Refills 05/02/17 Pramipexole* (MIRAPEX*) 0.25 Mg Tablet, 0.125 MG ORAL THREE TIMES A DAY, TAB 05/02/17 Oxcarbazepine* (TRILEPTAL*) 600 Mg Tablet, 600 MG PO BID, TAB 05/02/17 Discontinued Reported Medications Temazepam* (RESTORIL*) 15 Mg Capsule, 15 MG ORAL BEDTIME Y for Insomnia, CAP 05/02/17 Med list reviewed/reconciled: Yes Allergies: Coded Allergies: No Known Allergies (Unverified , 05/02/17) Patient History History Provided By: Patient, Family Member, Medical Record PMH Narrative Gallstone Depression Kidney Stones Sleep Apnea Schizophrenia / Bi Polar ?brain surgery or tumor Family History Narrative Extensive family history of cancer. Father >> prostate CA Sister >> leukemia, multiple colonic polyps, lung CA Social History: Denies: smoking, alcohol use, drug use, other Review of Systems All Other Systems: negative except mentioned in HPI Physical Exam Vital Signs Date Time Temp Pulse Resp B/P (MAP) Pulse Ox O2 Delivery O2 Flow Rate FiO2 06/13/17 13:24 97.9 93 114/79 98 97.9 Sp02 EP Interpretation: reviewed, normal General Appearance: well appearing, no apparent distress, alert Head: normocephalic EENT: PERRL/EOMI, normal ENT inspection Neck: supple Respiratory: normal breath sounds, no respiratory distress Cardiovascular: normal rate Gastrointestinal: normal inspection, non tender, soft, normal bowel sounds, non -distended Rectal: deferred Genitourinary: deferred Musculoskeletal: normal inspection, back normal Neurologic: normal inspection, alert, oriented x3, responsive Psychiatric: normal inspection, judgement/insight normal, memory normal Skin: normal inspection, normal color, no rash, warm/dry, palpation normal, well hydrated Lymphatic: normal inspection, no adenopathy GI: Plan Problems: (1) Constipation (2) Colonoscopy planned (3) Family history of cancer (4) Abdominal pain Plan EGD/colonoscopy scheduled 06/23/17. - CLD & (Nulytely/Suprep/Movi-Prep) prep instructions to be sent to facility. - NPO @ [place] day prior procedure explained. prashant SOLARES Seen with Dr. Skinner. Thank you for this patient referral. Hannah Perales N.P. Jun 14, 2017 12:52
== END 2017-06-13 11:22 | disposition home or self-care (01) ==
LOC: PAN 10:50
DX: R10.9 Unspecified abdominal pain (principal); K59.00 Constipation, unspecified; Z80.9 Family history of malignant neoplasm, unspecified; F32.9 Major depressive disorder, single episode, unspecified; Z86.73 Personal history of transient ischemic attack (TIA), and cerebral infarction without residual deficits; G47.30 Sleep apnea, unspecified; F20.9 Schizophrenia, unspecified; F31.9 Bipolar disorder, unspecified; Z80.42 Family history of malignant neoplasm of prostate; Z80.6 Family history of leukemia; Z80.1 Family history of malignant neoplasm of trachea, bronchus and lung
CPT/HCPCS: 99201

== ENCOUNTER 2017-07-11 10:08 | Outpatient (CLI) | payer MEDICARE ==
[2017-07-11 10:27] VITALS: BP 110/64
[2017-07-11] MEDS ORDERED: OMEPRAZOLE40 M1 ORAL (10:29)
--- NOTE | 2017-07-11 11:04 | GI Progress Note ---
Assessment/Plan Problems: (1) Colonoscopy planned SNOMED: 216920905 (2) Abdominal pain ICD Codes: R10.9 - Unspecified abdominal pain SNOMED: 44911969 (3) Constipation ICD Codes: K59.00 - Constipation, unspecified SNOMED: 22988041 Status: stable Status Narrative Seen with Dr. Skinner. Assessment/Plan SUMMARY OF FINDINGS reviewed with patient: 1. Eosinophilic esophagitis. 2. Irregular Z-line. 3. Gastritis, status post biopsy. 4. Hemorrhoids. 5. Fair colonic prep. 6. Prominent fold in the ascending colon, status post biopsy. Gallstones noted on MRI >> no intervention at this time, pt asymptomatic RECOMMENDATIONS: repeat EGD scheduled for 08/16/17. cont ppi Subjective Subjective no complaints of abdominal pain constipation, amitiza does not work Objective Last 24 Hour Vital Signs Date Time Temp Pulse Resp B/P (MAP) Pulse Ox O2 Delivery O2 Flow Rate FiO2 07/11/17 10:27 97.5 83 16 110/64 96 97.5 General Appearance: WD/WN, no apparent distress, alert Cardiovascular: normal rate Respiratory/Chest: normal breath sounds, no respiratory distress Abdominal Exam: normal bowel sounds, non tender, soft Extremities: normal range of motion, non-tender Hannah Perales N.P. Jul 11, 2017 11:04
== END 2017-07-11 10:40 | disposition home or self-care (01) ==
LOC: PAN 10:08
DX: R10.9 Unspecified abdominal pain (principal); K59.00 Constipation, unspecified; K20.0 Eosinophilic esophagitis; K29.70 Gastritis, unspecified, without bleeding; K64.9 Unspecified hemorrhoids
CPT/HCPCS: 99212

== ENCOUNTER 2017-08-16 09:12 | Day surgery (SDC) | payer MEDICARE ==
[~2017-08-16] VITALS: Ht 170.2 cm; Wt 95.0 kg
[2017-08-16] VITALS (10 sets, daily range): BP systolic 116–141; BP diastolic 76–96
--- NOTE | 2017-08-16 08:43 | Anethesia Preoperative Eval ---
Anesthesia Pre-op PMH/ROS General Date of Evaluation: August 16, 2017 Time of Evaluation: 08:42 Anesthesiologist: marcie ASA Score: ASA 3 Mallampati Score Class I : Soft palate, uvula, fauces, pillars visible Class II: Soft palate, uvula, fauces visible Class III: Soft palate, base of uvula visible Class IV: Only hard plate visible Mallampati Classification: Class II Surgeon: sommer Diagnosis: abdominal pain Surgical Procedure: egd Anesthesia History: none Social History: smoking Family History: no anesthesia problems Allergies: Coded Allergies: No Known Allergies (Unverified , 08/16/17) Medications: see eMAR Past Medical History Cardiovascular: Reports: HTN Pulmonary: Reports: CHANTAL Gastrointestinal/Genitourinary: Reports: other - renal stones Neurologic/Psychiatric: Reports: depression/anxiety, other - schizophrenia Anesthesia Pre-op Phys. Exam Physician Exam Constitutional: NAD Neurologic: CN 2-12 intact Cardiovascular: RRR Respiratory: CTA Gastrointestinal: S/NT/ND Airway Exam Mallampati Score: Class II Neck: supple TMD: 2fb ROM: full Anesthesia Pre-op A/P Risk Assessment & Plan Assessment: asa3 Plan: mac Status Change Before Surgery: No Pre-Antibiotics Drug: Isela Barnes MD August 16, 2017 08:43
[~2017-08-16 09:12] MED LIST changes: +Atropine Inj 1mg/10ml Syr IV PRN; +DiphenhydrAMINE 50mg/ml Inj IVP PRN; +Midazolam 2mg/2ml Inj IVP PRN; +OMEPRAZOLE40 M1 ORAL; +fentaNYL 100 mcg/2 mL IV PRN
[2017-08-16] MEDS ORDERED: Lidocaine 1% MPF 10mg/ml 5ml ONE (10:00)
[2017-08-16] MEDS ORDERED: Midazolam 2mg/2ml Inj ONE (10:00)
[2017-08-16] MEDS ORDERED: Propofol 200mg/20ml IV ONE (10:00)
--- NOTE | 2017-08-16 10:28 | Pre-Procedure Note/Attestation ---
Pre-Procedure Note/Attestation Complete Prior to Procedure Planned Procedure: not applicable Procedure Narrative: esophagogastroduodenoscopy and colonoscopy Indications for Procedure Pre-Operative Diagnosis: screening colon, GERD Attestation I attest that I discussed the nature of the procedure; its benefits; risks and complications; and alternatives (and the risks and benefits of such alternatives ), prior to the procedure, with the patient (or the patient's legal sales representative graphic art). I attest that, if there was a reasonable possibility of needing a blood transfusion, the patient (or the patient's legal sales representative graphic art) was given the [facility] standardized written summary, pursuant to the Poli Drasco Blood Safety Act ([place] Health and Safety Code # 1645, as amended). I attest that I re-evaluated the patient just prior to the surgery and that there has been no change in the patient's H&P, except as documented below: Sidney Skinner MD August 16, 2017 10:28
--- NOTE | 2017-08-16 10:30 | Short Stay Surgery H&P ---
History of Present Illness History of Present Illness Chief Complaint eosinophilic esophagitis HPI Bhanu Chowdhury is a 52 year old male who was admitted on for Colon Screening Patient History Allergies: Coded Allergies: No Known Allergies (Unverified , 08/16/17) PAST MEDICAL HISTORY: (1) Abdominal pain (2) Constipation (3) HTN (hypertension) (4) Anxiety (5) Kidney stone Relevant Family History: Cancer Medication History Scheduled Clonazepam* (Klonopin*), 0.5 MG ORAL Q6H, (Reported) Escitalopram Oxalate* (Lexapro*), 10 MG ORAL DAILY, (Reported) Modafinil* (Provigil), 200 MG ORAL DAILY, (Reported) Omeprazole (Omeprazole), 40 MG ORAL DAILY, (Reported) Oxcarbazepine* (Trileptal*), 600 MG PO BID, (Reported) Pramipexole* (Mirapex*), 0.125 MG ORAL THREE TIMES A DAY, (Reported) Quetiapine Fumarate (Seroquel), 300 MG ORAL TWICE A DAY, (Reported) Review of Systems Cardiovascular: Reports: no symptoms Respiratory: Reports: no symptoms Skeletal: Reports: no symptoms Gastrointestinal: Reports: peptic ulcer disease Genitourinary: Reports: no symptoms Neurologic: Reports: no symptoms Endocrine: Reports: no symptoms Hematologic: Reports: no symptoms Physical Exam Vital Signs Last Vital Signs Date Time Temp Pulse Resp B/P (MAP) Pulse Ox O2 Delivery O2 Flow Rate FiO2 08/16/17 09:39 97.0 71 18 131/96 98 Room Air 97.0 Skin: normal HENT: normal Heart: normal Lungs: normal Abdomen: normal Extremities: normal Plan Plan of Care egd Attestation Are the patient's medical conditions optimized for surgery? Attestation Response: yes Sidney Skinner MD August 16, 2017 10:30
--- NOTE | 2017-08-16 10:43 | Endoscopy Procedure Note ---
Endoscopy Procedure Note General Indication for Procedure: esophagitis Procedures Performed: EGD Operative Findings/Diagnosis: same Specimen: yes Pt Tolerated Procedure Well: Yes Estimated Blood Loss: none Anesthesia Anesthesiologist: marcie Anesthesia: MAC Inserted Devices Implant(s) used?: No GI Core Measures 50 yrs or older w/o bx or poly: Not Applicable 10yrs. F/U not recommended: Not Applicable Sidney Skinner MD August 16, 2017 10:43
--- NOTE | 2017-08-16 11:42 | Endoscopy Procedure Note ---
Endoscopy Procedure Note General Indication for Procedure: screening colon, GERD Procedures Performed: EGD, colonoscopy Operative Findings/Diagnosis: 3 polyps, gastritis Specimen: yes Pt Tolerated Procedure Well: Yes Estimated Blood Loss: none Anesthesia Anesthesiologist: marcie Anesthesia: MAC Inserted Devices Implant(s) used?: No Quality Quality of Bowel Preparation: Excellent Did scope reach the cecum?: Yes Was there any complications?: No GI Core Measures 50 yrs or older w/o bx or poly: No 10yrs. F/U not recommended: Yes If not recommended, why?: Above average risk 10 yrs. F/U needed: Yes 18 years or older w/prev. colo: No Sidney Skinner MD August 16, 2017 11:42
--- NOTE | 2017-08-16 13:16 | Immediate Post-Op Evaluation ---
Immediate Post-Op Evalulation Immediate Post-Op Evalulation Procedure: egd/bx Date of Evaluation: August 16, 2017 Time of Evaluation: 11:00 IV Fluids: 300ml 0.9ns Blood Products: none Estimated Blood Loss: negligible Blood Pressure Systolic: 128 Blood Pressure Diastolic: 76 Pulse Rate: 64 Respiratory Rate: 18 O2 Sat by Pulse Oximetry: 97 Temperature (Fahrenheit): 97.3 Pain Score (1-10): 0 Nausea: No Vomiting: No Complications none Patient Status: awake, reacts, patent Hydration Status: adequate Drug: Isela Barnes MD August 16, 2017 13:16
--- NOTE | 2017-08-16 13:18 | 48 Hour Post Anesthesia Eval ---
Post Anesthesia Evaluation Procedure: egd/bx Date of Evaluation: August 16, 2017 Time of Evaluation: 11:02 Blood Pressure Systolic: 123 0: 79 Pulse Rate: 60 Respiratory Rate: 18 Temperature (Fahrenheit): 97.2 O2 Sat by Pulse Oximetry: 97 Airway: patent Nausea: No Vomiting: No Pain Intensity: 0 Hydration Status: adequate Cardiopulmonary Status: stable Mental Status/LOC: patient returned to baseline Post-Anesthesia Complications: none Follow-up care needed: N/A Isela Ford MD August 16, 2017 13:17
--- NOTE | 2017-08-16 16:26 | Cardiology Report ---
APPROVED REPORT EKG Measurement Heart [id number] Normal sinus rhythm Normal ECG
--- NOTE | 2017-08-16 16:30 | Procedure Note ---
DATE OF PROCEDURE: 08/16/2017 SURGEON: Sidney Skinner M.D. ANESTHESIOLOGIST: Dr. Barry. PROCEDURE: Upper endoscopy with biopsy. ANESTHESIA: Per Dr. Barry. INSTRUMENT: Olympus adult flexible upper endoscope. INDICATION: History of eosinophilic esophagitis. The procedure, risks, benefits, and possible consequences, including hemorrhage, aspiration, perforation and infection, and alternative treatments, were explained to the patient/legal guardian by Dr. Sidney Skinner and the patient/legal guardian understood and accepted these risks. DESCRIPTION OF PROCEDURE: After informed consent was obtained and the patient was adequately sedated, Olympus upper endoscope was advanced from the mouth to the second portion of the duodenum and retroflexion was performed in the stomach. The patient has evidence of a polyp-looking lesion at the angularis with central cavitation in it. I was not sure exactly what to call this lesion. It looks a little bit inflamed, looked , measured roughly about 6 mm in size. We did multiple biopsies from this lesion. Again, this was at of angularis. The patient had evidence of small hiatal hernia, distal esophageal ring, minimum distal esophagitis. There was still evidence of eosinophilic esophagitis with some ring formations and bubbles in the esophagus. Multiple biopsies from distal esophagus were obtained for evaluation. SUMMARY OF FINDINGS: 1. 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 2. Small hiatal hernia. 3. Distal esophageal ring. 4. Minimum distal esophagitis. 5. Questionable eosinophilic esophagitis, persistent. PLAN: Follow biopsy results. If the biopsy from the polyp comes back adenomatous polyp, he needs repeat endoscopy and full resection of it endoscopically. The patient to be resumed back on his omeprazole. Apparently, he was not taking it and follow up in the office. Sidney Skinner M.D. DR: Austyn JOB#: [id number] CC:
== END 2017-08-16 12:25 | disposition home or self-care (01) ==
LOC: GAS 09:12
DX: K20.9 Esophagitis, unspecified (principal); K44.9 Diaphragmatic hernia without obstruction or gangrene; K22.2 Esophageal obstruction; I10 Essential (primary) hypertension; F41.9 Anxiety disorder, unspecified; G47.33 Obstructive sleep apnea (adult) (pediatric); F32.9 Major depressive disorder, single episode, unspecified; F20.9 Schizophrenia, unspecified; Z87.442 Personal history of urinary calculi; Z87.11 Personal history of peptic ulcer disease
CPT/HCPCS: 43239; 93005; J2250; J2704; 94003; 94150

== ENCOUNTER 2017-09-05 11:13 | Outpatient (CLI) | payer MEDICARE ==
[~2017-09-05 11:13] MED LIST changes: -Atropine Inj 1mg/10ml Syr IV PRN; -DiphenhydrAMINE 50mg/ml Inj IVP PRN; -Midazolam 2mg/2ml Inj IVP PRN; -fentaNYL 100 mcg/2 mL IV PRN
--- NOTE | 2017-09-06 09:47 | GI Progress Note ---
Assessment/Plan Problems: (1) GERD (gastroesophageal reflux disease) ICD Codes: K21.9 - Gastro-esophageal reflux disease without esophagitis SNOMED: 817604845 (2) Abdominal pain ICD Codes: R10.9 - Unspecified abdominal pain SNOMED: 26104445 Status: stable Status Narrative Seen with Dr. Skinner. Assessment/Plan Omeprazole 40mg RTC x 3 months plan for EGD/colonoscopy after next visit Subjective Subjective GERD Objective General Appearance: WD/WN, no apparent distress, alert Cardiovascular: normal rate Respiratory/Chest: normal breath sounds, no respiratory distress Abdominal Exam: normal bowel sounds, non tender, soft Extremities: normal range of motion, non-tender Jean Perales NP Sep 06, 2017 09:47
== END 2017-09-05 11:45 | disposition home or self-care (01) ==
LOC: PAN 11:13
DX: K21.9 Gastro-esophageal reflux disease without esophagitis (principal); R10.9 Unspecified abdominal pain
CPT/HCPCS: 99212